=== PATIENT | male | born 1945 | race Caucasian/White ===

== ENCOUNTER 2025-03-10 15:11 | Emergency (ER) | payer MEDICARE, SELFPAY ==
[2025-03-10 15:25] VITALS: BP 144/79; PULSE 50; RESP 17; TEMP 36.7; O2SAT 100
--- NOTE | 2025-03-10 15:25 | ECG_ITS ---
Test Date: 2025-03-10 15:33:52 Measurements Intervals [place] Rate: 64 P: 46 [place]: 215 QRS: -21 QRSD: 88 T: 33 QT: 415 QTc: 429 Interpretive Statements SINUS RHYTHM WITH SINUS ARRHYTHMIA WITH FIRST DEGREE AV BLOCK CANNOT R/O SEPTAL INFARCT, AGE INDETERMINATE BORDERLINE ST-T WAVE ABNORMALITY- HIGH LATERAL LEADS BASELINE ARTIFACT- I, II, III, AVR, AVL, AVF, V1, V3 ABNORMAL ECG No previous ECG available for comparison Electronically Signed On 03-10-2025 15:38:56 CDT by Atif Christensen D.O.
--- NOTE | 2025-03-10 15:25 | ED.CHESTPAIN ---
HPI - Chest Pain General Chief Complaint: Chest Pain Stated Complaint: Chest Pain Source: patient Mode of arrival: ambulatory Limitations: no limitations History of Present Illness HPI narrative: Patient is a 79 year old male who is presenting to the clinic for chest pain that started this morning. He states the pain has been coming and going, but it is sharp. Currently denies any active chest pain at this moment. He has not taken anything over the counter. He is from [facility] and is here visiting family. He states that he normally has a low heart rate between 40-50. His PCP is working on getting diagnostic tests done for his low heart rate. Denies having any cardiac history. No pacemaker. Denies any shortness of breath, nausea, or vomiting. Related Data Home Medications ?Medication ?Instructions ?Recorded ?Confirmed ?Last Taken ?Type atorvastatin 10 mg tablet mg 03/10/25 Unknown History brimonidine 0.2 %-timolol 0.5 % drp 03/10/25 Unknown History eye drops (Combigan) Allergies Allergy/AdvReac Type Severity Reaction Status Date / Time No Known Allergies Allergy Verified 03/10/25 15:36 Review of Systems Review of Systems: CONSTITUTIONAL: Denies body aches, fever, chills, or sweats. EYES: Denies visual changes, redness, or discharge. ENT: Denies rhinorrhea, congestion, sore throat, or otalgia. CARDIOVASCULAR: Reports chest pain. No palpitations or edema. RESPIRATORY: Denies cough, sob, wheezing. GASTROINTESTINAL: Denies abdominal pain, nausea, vomiting, or diarrhea. SKIN: Denies rash, itching, or wounds. MUSCULOSKELETAL: Denies back pain, joint pain, or myalgia. NEUROLOGIC: Denies headache, numbness, tingling, or weakness. PSYCH: ?Denies depression or anxiety. All systems reviewed & are unremarkable except as noted in HPI and below [facility] Comments At time of signature, I have reviewed and agree with nursing past medical, surgical, social and family history unless otherwise noted. Please see nursing chart for further information. There is no relevant family history pertinent to the presenting complaint. Exam Narrative: GENERAL: Mildly ill-appearing, ?in no acute distress. EYES: EOMI. ?No redness or drainage. Conjunctivae normal. NECK: Normal AROM. ?Supple. ? CHEST: ?No respiratory distress. Clear to auscultation. HEART: Irregular rate and rhythm. No murmur appreciated. ABDOMEN: Soft, nontender, nondistended, normal active bowel sounds. EXTREMITIES: Normal range of motion. No edema. SKIN: Warm, dry, no rash. Capillary refill normal. ?Normal skin turgor. NEURO: Alert and oriented x3. Gait steady. PSYCH: ?Normal affect. ? Course Course Level of Care: Express Care Visit Transfer Transfered to: [facility] comments: Pt is agreeable to transfer. Requests transfer to [facility] via ambulance. Risks of transportation reviewed with pt including injury, worsening of condition and . Ambulance will be transporting patient. Report called to [facility], spoke with Dr. Maradiaga, accepting physician. Pt is in stable condition at time of transfer. Advised to remain NPO. MDM - Chest Pain MDM Narrative Medical decision making narrative: Discussed physical exam findings. EKG shows first degree block and myocardial infarction. Discussed in depth the need for patient to transfer to ER. Pt agreeable to plan. Patient chose [facility]. Differential Diagnosis Differential diagnosis: Likely stable angina, unstable angina pectoris, chest pain and other (myocardial infarction, 1st degree block, ) ECG Data EKG #1: ECG completion date: 03/10/25 ECG completion time: 15:33 Prior ECG tracings: not available for review Interpretation: Vent rate 64 BPM NH int 215 ms QRS dur 88ms QT/QTc 415/424 ms P-R-T axes 46-21 33 Avg RR 935 ms QTcB 429 ms QTcF 424 ms EKG Interpretation: other (first degree block, septal myocardial infarction) Critical Care Time Critical Care Time Critical Care Time: No Discharge Plan Discharge Clinical Impression: Chest pain Qualifiers: Chest pain type: unspecified Qualified Code(s): R07.9 - Chest pain, unspecified Patient Disposition: Acute Care Hospital Condition: Stable Patient Language: Danish Follow-up/Referrals: 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
--- NOTE | 2025-03-10 15:38 | PC.NURSE ---
EMS called for pt transfer
--- NOTE | 2025-03-10 15:45 | PC.NURSE ---
EMS here for pt, report given.
== END 2025-03-10 15:50 | disposition short-term general hospital (02) ==
DX: R07.9 Chest pain, unspecified (principal)
CPT/HCPCS: 93005; 99215; G0463

== ENCOUNTER 2025-03-10 16:09 | Emergency (ER) | payer MEDICARE, SELFPAY ==
--- NOTE | ~2025-03-10 | XR_ITS ---
XR chest 2V Ordering provider: Andrea Wolff III, DO History: 79 years Male with . chest pain, bradycardic . Comparison: None. FINDINGS: MEDIASTINUM: The cardiac silhouette is not enlarged. LUNGS: No infiltrates, effusions or pneumothorax. Emphysematous changes. OTHER: No free air under the diaphragm. Degenerative changes of the spine. IMPRESSION: No acute cardiopulmonary pathology. Reviewed, dictated and finalized at location A.
--- NOTE | 2025-03-10 16:12 | ECG_ITS ---
Test Date: 2025-03-10 16:16:43 Measurements Intervals [place] Rate: 61 P: 61 [place]: 201 QRS: -19 QRSD: 86 T: 51 QT: 408 QTc: 413 Interpretive Statements SINUS RHYTHM WITH MARKED SINUS ARRHYTHMIA BORDERLINE AV CONDUCTION DELAY CANNOT R/O SEPTAL INFARCT, AGE INDETERMINATE BORDERLINE ST-T WAVE ABNORMALITY- HIGH LATERAL LEADS BASELINE ARTIFACT- I, II, III, AVR, AVL, AVF ABNORMAL ECG Compared to ECG 03/10/2025 15:33:52 First degree AV block no longer present Electronically Signed On 03-10-2025 16:29:25 CDT by Atif Christensen D.O.
--- OUTSIDE RECORDS SUMMARY | 2025-03-10 16:12 | XMS_ITS ---
Author Organization [facility] Division Address [address] [place] [address] [address] [place] [address] Care Team Providers Care Guzzler Builder Name Role Phone SHAD GOMEZ Primary Care Provider Ruby Martinez Unavailable [phone] Jory Caban Unavailable [phone] REASON FOR VISIT Pt reports HAs not working- leave town tomorrow Encounters Encounter Location Date Provider Diagnosis [address] [facility] Leonardo Arrington [address] [facility] [address] [place] [address] 01/19/2025 Jory Caban Plan Of Treatment No Information Progress Notes * Peter ARCHIBALD WDOB:1945 (79 yo M)Acc No.[id number]:01/19/2025 Patient: Peter CONNOR Provider: Jhon Cm, [facility]-A :1945 A ge:79 Y S ex:Male Date:01/19/2025 Address:[address] Pcp:SHAD GOMEZ Structured Data:How did you hear about us? : Other Subjective: * Chief Complaints: * 1 . Pt reports HAs not working- leave town tomorrow. * Medical History: Objective: * Vitals: * Physical Examination: Assessment: Plan: * Treatment: * Billing Information: * Visit Code: * Procedure Codes: * Electronic signature of Jhon Lim on 03/10/2025 at 05:12 PM EDT Sign off status: Pending * Provider: Jhon Cm, CCC-A Date: 0 01/19/2025 Generated for Delia almonte/Lakshmi/Jina on: 0 03/10/2025 05:12 PM EDT
[2025-03-10 16:13] VITALS: BP 148/77; PULSE 61; RESP 16; TEMP 36.5; O2SAT 100
--- OUTSIDE RECORDS SUMMARY | 2025-03-10 16:13 | XMS_ITS | Data Portability ---
Author Organization MD [facility], [employer] Address [address] [place] [address] Care Team Providers Care Summer [employer] Coordinator Name Role Phone HUMA FERMIN OTHER Assessment No assessment recorded. Plan of Treatment Reminders Order Date Submit Date Provider Last Modified By Organization Details Last Modified Time Details Appointments None recorded. 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 Surgeries None recorded. Imaging electrocar diogram 2014 015 blane In-Office Order, Internal Use Only DO Not Attach Compendium DO Not Attach Compendium, Do Not Delete/merge, [id number] 5 09:10:17 MRI, brain - headache, weight loss, visual disturbanc e 2014 015 [facility], [address], [place], , 5 12:06:43 Medication Orders Augmentin 875 mg-125 mg tablet 2015 016 [id number], [address], [place], [id number], 6 04:33:32 Cialis 20 mg tablet 2014 015 [id number], [address], [place], [id number], 5 08:52:06 Patient TargetsNo targets recorded. Patient Instructions Encounter Date Encounter Id Patient Instructions Last Modified By Organization Details Last Modified Time 04/03/2015 [id number] Encouraged healt h promotion activities including healthy low cholesterol diet high in fruits and vegetables with low fat meats and whole grains, daily physical activity to reduce the risk of cardiovascular disease, dental hygiene, and sunscreen use. Adolescent and young adult females should consume1,200-1,500 mg of calcium per day, adults age 25-50 should consume 1,000 mg daily, and postmenopausal women need 1,000-1,500 mg per day. Encouraged avoidance of tobacco, limiting alcohol use and avoiding drinking and driving. Reviewed age-appropriate safety measures including seatbelt and helmet use. Preventive health measures addressed, including annual recommended screening for blood pressure and cholesterol, routine colon cancer screening for patients 50 years and older, breast cancer screening for women 40 years of age and older and cervical cancer screening for women 21 years of age and older and glaucoma screening. F/U in one year for annual physical, or sooner if pt has other complaints or chronic health problems. Not available 04/03/2015 08:39:46 06/07/2016 [id number] probiotic/yogurt with meds. ibuprofen as needed for pain. Call with no improvement or worsening next week. 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, normal MRI Referring Physician: Kacey Castillo [facility], Encounter Date: 05/04/2015 [employer] Referral for Br adycardia asymptomatic bradycardia with inverted T waves on EKG Referring Physician: Kacey Castillo [facility], Encounter Date: 05/04/2015 Results Created Date Observation Date Name Description Value Unit Range Abnormal Flag Note LastModifiedBy Organization Detail LastModifiedTime 05/04/20 15 05/04/2015 elect alivia postgr am EKG Result abnorm al abnormal Not Available In-Office Order Internal Use Only DO Not Attach Compendium DO Not Attach Compendium, Do Not Delete/merge, [id number] 05/04/2015 09:10:08 04/03/20 15 04/04/2015 CBC WBC 5.7 x10e3 /uL 3.4-10 .8 Not Available [facility] ([facility]) [address], [place], [address], 04/04/2015 09:46:13 04/03/20 15 04/04/2015 CBC RBC 4.50 x10e6 /uL 4.14-5 .80 Not Available [facility] ([facility]) [address], [place], [address], 04/04/2015 09:46:13 04/03/20 15 04/04/2015 CBC hemoglobin 13.9 g/dL 12.6-1 7.7 Not Available [facility] ([facility]) [address] [place], [address], 04/04/2015 09:46:13 04/03/20 15 04/04/2015 CBC hematocrit 41.0 % 37.5-5 1.0 Not Available [facility] ([facility]) [address] [place], [address], 04/04/2015 09:46:13 04/03/20 15 04/04/2015 CBC MCV 91 fL 79-97 Not Available [facility] ([facility]) [address] [place], [address], 04/04/2015 09:46:13 04/03/20 15 04/04/2015 CBC MCH 30.9 pg 26.6-3 3.0 Not Available [facility] ([facility]) [address] [place], [address], 04/04/2015 09:46:13 04/03/20 15 04/04/2015 CBC MCHC 33.9 g/dL 31.5-3 5.7 Not Available [facility] ([facility]) [address], [address], 04/04/2015 09:46:13 04/03/20 15 04/04/2015 CBC RDW 13.2 % 12.3-1 5.4 Not Available [facility] ([facility]) [address] [place], [address], 04/04/2015 09:46:13 04/03/20 15 04/04/2015 CBC platelets 237 x10e3 /uL 150-37 9 Not Available [facility] ([facility]) [address], [address], 04/04/2015 09:46:13 04/03/20 15 04/04/2015 CBC neutrophils 60 % Not Avai lable [facility] ([facility]) [address], [address], 04/04/2015 09:46:13 04/03/20 15 04/04/2015 CBC lymphs 24 % Not Available [facility] ([facility]) [address], [address], 04/04/2015 09:46:13 04/03/20 15 04/04/2015 CBC monocytes 8 % Not Availa ble [facility] ([facility]) [address], [address], 04/04/2015 09:46:13 04/03/20 15 04/04/2015 CBC eos 7 % Not Available [facility] ([facility]) [address], [address], 04/04/2015 09:46:13 04/03/20 15 04/04/2015 CBC basos 1 % Not Available [facility] ([facility]) [address], [address], 04/04/2015 09:46:13 04/03/20 15 04/04/2015 CBC neutrophils (absolute) 3.4 x10e3 /uL 1.4-7. 0 Not Available [facility] ([facility]) [address] [place], [address], 04/04/2015 09:46:13 04/03/20 15 04/04/2015 CBC lymphs (absolute) 1.4 x10e3 /uL 0.7-3. 1 Not Available [facility] ([facility]) [address] [place], [address], 04/04/2015 09:46:13 04/03/20 15 04/04/2015 CBC monocytes(ab solute) 0.5 x10e3 /uL 0.1-0. 9 Not Available [facility] ([facility]) [address] [place], [address], 04/04/2015 09:46:13 04/03/2004/04/2015 CBC eos (absolute) 0.4 x10e3 /uL 0.0-0. 4 Not Available [facility] ([facility]) [address], [address], 04/04/2015 09:46:13 04/03/2004/04/2015 CBC baso (absolute) 0.1 x10e3 /uL 0.0-0. 2 Not Available [facility] ([facility]) [address], [place], [address], 04/04/2015 09:46:13 04/03/2004/04/2015 CBC immature granulocytes 0 % Not Available [facility]) [address], [address], 04/04/2015 09:46:13 04/03/2004/04/2015 CBC immature grans (abs) 0.0 x10e3 /uL 0.0-0. 1 Not Available [facility] ([facility]) [address], [place], [address], 04/04/2015 09:46:13 04/03/2004/04/2015 CMP, serum or plasm a glucose, serum 79 mg/dL 65-99 Not Available [facility]) [address] [place], [address], 04/04/2015 09:46:13 04/03/2004/04/2015 CMP, serum or plasm a BUN 16 mg/dL 8-27 Not Available [facility] ([facility]) [address] [place], [address], 04/04/2015 09:46:13 04/03/2004/04/2015 CMP, serum or plasm a creatinine, serum 0.93 mg/dL 0.76-1 .27 Not Available [facility] ([facility]) [address] [place], [address], 04/04/2015 09:46:13 04/03/20 15 04/04/2015 CMP, serum or plasm a eGFR if nonafricn AM 84 mL/mi n/1.7 3 >59 Not Available [facility] ([facility]) [address], [place], [address], 04/04/2015 09:46:13 04/03/20 15 04/04/2015 CMP, serum or plasm a eGFR if africn AM 97 mL/mi n/1.7 3 >59 Not Available [facility] ([facility]) [address], [place], [address], 04/04/2015 09:46:13 04/03/20 15 04/04/2015 CMP, serum or plasm a BUN/creatini ne ratio 17 10-22 Not Available [facility] ([facility]) [address] [place], [address], 04/04/2015 09:46:13 04/03/20 15 04/04/2015 CMP, serum or plasm a sodium, serum 140 mmol/ L 134-14 4 Not Available [facility] ([facility]) [address] [place], [address], 04/04/2015 09:46:13 04/03/20 15 04/04/2015 CMP, serum or plasm a potassium, serum 4.9 mmol/ L 3.5-5. 2 Not Available [facility] ([facility]) [address] [place], [address], 04/04/2015 09:46:13 04/03/20 15 04/04/2015 CMP, serum or plasm a chloride, serum 102 mmol/ L 97-108 Not Available [facility] ([facility]) [address] [place], [address], 04/04/2015 09:46:13 04/03/20 15 04/04/2015 CMP, serum or plasm a carbon dioxide, total 20 mmol/ L 18-29 Not Available [facility] ([facility] [address] [place], [address], 04/04/2015 09:46:13 04/03/2004/04/2015 CMP, serum or plasm a calcium, serum 9.3 mg/dL 8.6-10 .2 Not Available [facility] ([facility]) [address] [place], [address], 04/04/2015 09:46:13 04/03/2004/04/2015 CMP, serum or plasm a protein, total, serum 6.4 g/dL 6.0-8. 5 Not Available [facility] ([facility]) [address] [place], [address], 04/04/2015 09:46:13 04/03/2004/04/2015 CMP, serum or plasm a albumin, serum 4.6 g/dL 3.6-4. 8 Not Available [facility] ([facility]) [address] [place], [address], 04/04/2015 09:46:13 04/03/2004/04/2015 CMP, serum or plasm a globulin, total 1.8 g/dL 1.5-4. 5 Not Available [facility] ([facility]) [address], [address], 04/04/2015 09:46:13 04/03/2004/04/2015 CMP, serum or plasm a A/G ratio 2.6 1.1-2. 5 high Not Available [facility] ([facility]) [address] [place], [address], 04/04/2015 09:46:13 04/03/2004/04/2015 CMP, serum or plasm a bilirubin, total 0.7 mg/dL 0.0-1. 2 Not Available [facility] ([facility]) [address], [address], 04/04/2015 09:46:13 04/03/20 15 04/04/2015 CMP, serum or plasm a alkaline phosphatase, S 71 IU/L 39-117 Not Available [facility] ([facility]) [address], [place], [address], 04/04/2015 09:46:13 04/03/20 15 04/04/2015 CMP, serum or plasm a AST (SGOT) 15 IU/L 0-40 Not Available [facility] ([facility]) [address], [place], [address], 04/04/2015 09:46:13 04/03/2004/04/2015 CMP, serum or plasm a ALT (SGPT) 19 IU/L 0-44 Not Available [facility] ([facility]) [address], [place], [address], 04/04/2015 09:46:13 04/03/2004/04/2015 lipid panel , serum cholesterol, total 179 mg/dL 100-19 9 Not Available [facility] ([facility]) [address], [address], 04/04/2015 09:46:14 04/03/2004/04/2015 lipid panel , serum triglyceride s 67 mg/dL 0-149 Not Available [facility] ([facility]) [address], [place], [address], 04/04/2015 09:46:14 04/03/2004/04/2015 lipid panel , serum HDL cholesterol 56 mg/dL >39 ACCOR DING TO ATP-I II GUIDE LINES , HDL-C >59 MG/DL IS CONSI DERED A NEGAT BRIAN RISK FACTO R FOR CHD. Not Available [facility] ([facility]) [address], [place], [address], 04/04/2015 09:46:14 04/03/2004/04/2015 lipid panel , serum VLDL cholesterol aimee 13 mg/dL 5-40 Not Available [facility] ([facility]) [address], [place], [address], 04/04/2015 09:46:14 04/03/20 15 04/04/2015 lipid panel , serum LDL cholesterol calc 110 mg/dL 0-99 high Not Available [facility] ([facility]) [address] [place], [address], 04/04/2015 09:46:14 04/03/20 15 04/04/2015 iron + total iron- cory ng capac ity (TIBC ), serum iron bind.cap.(TI BC) 278 ug/dL 250-45 0 Not Available [facility] ([facility]) [address], [place], [address], 04/04/2015 09:46:14 04/03/20 15 04/04/2015 iron + total iron- cory ng capac ity (TIBC ), serum UIBC 169 ug/dL 150-37 5 Not Available [facility] ([facility]) [address], [place], [address], 04/04/2015 09:46:14 04/03/2004/04/2015 iron + total iron- cory ng capac ity (TIBC ), serum iron, serum 109 ug/dL 40-155 Not Available [facility] ([facility]) [address], [place], [address], 04/04/2015 09:46:14 04/03/2004/04/2015 iron + total iron- cory ng capac ity (TIBC ), serum iron saturation 39 % 15-55 Not Available [facility] ([facility]) [address] [place], [address], 04/04/2015 09:46:14 04/03/2004/04/2015 vitam in B12 + folat e, serum or blood vitamin B12 258 pg/mL 211-94 6 Not Available [facility] ([facility]) [address], [place], [address], 04/04/2015 09:46:15 04/03/2004/04/2015 vitam in B12 + folat e, serum or blood folate (folic acid), serum 14.4 NG/mL >3.0 A SERUM FOLAT E ARGENIS NTRAT ION OF LESS THAN 3.1 NG/ML IS CONSI DERED TO REPRE SENT CLINI AIMEE DEFIC IENCY . Not Available [facility] ([facility]) [address], [place], [address], 04/04/2015 09:46:15 04/03/2004/04/2015 PSA, serum or plasm a prostate specific Ag, serum <0.1 NG/mL 0.0-4. 0 MERRY ECLIA METHO DOLOG Y. . ACCOR DING TO THE [facility]I CAN UROLO G[facility] IAT[facility] N, SERUM PSA SHOUL D DECRE ASE AND REMAI N AT UNDET ECTAB LE LEVEL S AFTER RADIC AL PROST ATECT FLETCHER. THE AUA DEFIN ES BIOCH EMICA L RECUR RENCE AN INITI AL PSA VALUE 0.2 NG/ML OR GREAT ER FOLLO WED BY A SUBSE QUENT CONFI RMATO RY PSA VALUE 0.2 NG/ML OR GREAT ER. VALUE S OBTAI JEFF WITH DIFFE RENT ASSAY METHO DS OR KITS CANNO T BE USED INTER GORDON EABLY . RESUL TS CANNO T BE INTER PRETE D ABSOL ROSA M EVIDE NCE OF THE PRESE NCE OR ABSEN CE OF ZACK DIXON SE. Not Available [facility] ([facility]) [address], [place], [address], 04/04/2015 09:46:15 04/03/2004/04/2015 TSH, serum or plasm a TSH 0.846 uIU/m L 0.450- 4.500 Not Available [facility] ([facility]) [address], [place], [address], 04/04/2015 09:46:16 04/03/2004/04/2015 vitam in D3, 25-hy droxy , serum vitamin D, 25-hydroxy 30.1 NG/mL 30.0-1 00.0 VITAM IN D DEFIC IENCY HAS BEEN DEFIN ED BY THE INSTI TUTE OF MEDIC INE AND AN ENDOC RINE SOCIE TY PRACT ICE GUIDE LINE A LEVEL OF SERUM 25-OH VITAM IN D LESS THAN 20 NG/ML (1,2) . THE ENDOC RINE SOCIE TY WENT ON TO FURTH ER DEFIN E VITAM IN D INSUF FICIE NCY A LEVEL BETWE EN 21 AND 29 NG/ML (2). 1. IOM (INST ITUTE OF MEDIC INE). 2010. DIETA RY REFER ENCE RODERICK ES FOR CALCI UM AND D. LUCILLE DIXON [place]: THE [facility] PRESS . 2. LADAN Morejon MF, ADAM CHAUDHRY NC, RENETTA OFF-F ERRAR I REYES, ET AL. EVALU ATION , TREAT MENT, AND PREVE NTION OF VITAM IN D DEFIC IENCY : AN ENDOC RINE SOCIE TY CLINI AIMEE PRACT ICE GUIDE LINE. JCEM. 2010; 96(7) :1911 -30. Not Available [facility] ([facility]) [address], [place], [address], 04/04/2015 09:46:16 04/24/20 15 04/24/2015 MRI, brain No observ ation record ed. [address], [place], [address], 05/01/2015 23:04:17 04/24/20 15 04/24/2015 MRI, brain No observ ation record ed. [address], [place] [place], [place], , 05/01/2015 23:05:38 07/20/20 15 elect alivia conrad am No observ ation record ed. [email or web address] In-Office Order Internal Use Only DO Not Attach Compendium DO Not Attach Compendium, Do Not Delete/merge, [id number] 07/20/2015 11:20:51 Result Notes None recorded. Problems Name Problem SNOMED Code Status Onset Date Resolution Date Notes Provider Name and Address Organization Details Recorded Time Impotence Active MD Emily [facility]ier [employer] 6 10:02:39 Headache 47560481 Active chronic with normal MRI 05/06 MD Emily Frazier [employer] [facility] 5 09:10:16 Bradycardia 13314419 Active MD Emily Frazier [employer] [facility] 5 09:10:16 Problem Notes None recorded. Procedures Surgical History Date Name Laterality Status Provider Name and Address Organization Details Recorded Time 2 Eye Surgery completed Kacey Jensen [employer] [facility] 05/04/2015 08:59:11 9 Prostate Surgery completed Leigh Jensen NP [address], [facility] , [address], MD Emily [facility] [employer] [facility] 04/03/2015 08:39:47 Imaging Results None recorded. Procedure Notes None recorded. Medical Equipment None Reported. Allergies No known drug allergies Medications Name Sig Start Date Stop Date Status Note LastModified by Organization Details LastModified Time cyclobenzaprine 10 mg tablet active Not Available Not Available Not Available Augmentin 875 mg-125 mg tablet Take 1 tablet every 12 hours by oral route for 10 days. 2015 active Not Available Not Available Not Avai lable clindamycin HCl 300 mg capsule active Not Available Not Availab le Not Available penicillin V potassium 500 mg tablet active Not Available Not Available Not Available oxycodone-acetam inophen 5 mg-325 mg tablet active Not Available Not Available No t Available prednisolone acetate 1 % eye drops,suspension active Not Available Not Avail able Not Available econazole nitrate 1 % topical cream active Not Available Not Availabl e Not Available indomethacin 50 mg capsule active Not Available Not Available N ot Available Vigamox 0.5 % eye drops active Not Available Not Available No t Available Cialis 5 mg tablet TAKE 1 TABLET (s) EVERY DAY BY ORAL ROUTE NEEDED. active Not Available Not Available No t Available Cialis 20 mg tablet Take 1 tablet every day by oral route as needed for 30 days. active Not Available Not Available No t Available Durezol 0.05 % eye drops active Not Available Not Available No t Available B12 active Not Available Not Availa ble Not Available Vitals Date Recorded Respiratory rate Body weight Body temperature Heart rate Body mass index (BMI) Body height Systolic blood pressure Diastolic blood pressure Provider Name and Address Organization Details Last Updated DateTime 5 18 /min 71254.8 1735 g 98.3 [degF] 62 /min 21 kg/m2 182.88 cm 100 mm[Hg] 70 mm[Hg] Leigh Jensen NP [address] [facility] [address], [place], [phone] , MD Emily Jensen [employer] [facility] [facility] 5 08:39:46 Date Recorded Body height Heart rate Respiratory rate Oxygen saturation Oxygen saturation in Arterial blood by Pulse oximetry Systolic blood pressure Diastolic blood pressure Provider Name and Address Organization Details Last Updated DateTime 6 182.88 cm 72 /min 30 /min 99 % 99 % 117 mm[Hg] 70 mm[Hg] Kacey Jensen [facility] [facility] 6 12:35:45 Date Recorded Respiratory rate Body weight Body height Heart rate Body mass index (BMI) Systolic blood pressure Diastolic blood pressure Provider Name and Address Organization Details Last Updated DateTime 5 20 /min 01430.1 03099 g 182.88 cm 55 /min 21.4 kg/m2 100 mm[Hg] 72 mm[Hg] Kacey Jensen [employer] [facility] 5 08:59:10 Date Recorded Body height Heart rate Oxygen saturation Oxygen saturation in Arterial blood by Pulse oximetry Respiratory rate Body temperature Provider Name and Address Organization Details Last Updated DateTime 6 182.88 cm 76 /min 99 % 99 % 20 /min 98.2 [degF] Kacey Jensen [employer] [facility] 6 15:57:01 Social History Question Answer Notes LastModified by Organizat ion Details LastModified Time Tobacco Smoking Status Never Smoker Not Available [facility] 07/25/2020 03:33:47 What Is Your Level Of Caffeine Consumption? Moderate [id number] Information not available 07/25/2020 What Type Of Diet Are You Following? REGULAR No Red Meat [id number] Information not available 07/25/2020 Which Illicit Or Recreational Drugs Have You Used? Marijuana Weekends [id number] Information not available 07/25/2020 Family History Of Heart Disease? Yes Information not available 04/03/2015 High Blood Pressure No Information not available 04/03/2015 High Cholesterol No Informat ion not available 04/03/2015 How Many Children Do You Have? 2 [id number] Information not available 07/25/2020 What Is Your Parents' Marital Status? [id number] Information not available 07/25/2020 Are You Sexually Active? Yes [id number] Information not available 07/25/2020 Sex: Unknown Functional Status Question Answer Note LastModified by Organizat ion Details LastModified Time What is your level of alcohol consumption? Moderate [id number] Information not available 07/25/2020 Are you currently employed? 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 Occasional [id number] Information not available 07/25/2020 Mental Status None recorded. Family History Relationship Description Onset Age of this Age Resolved Age Notes LastModified by Organization Details LastModified Time Mother Hypertensive disorder Not available 2014 08:39:47 Mother Cerebrovascu lar accident 76 86 Not available 08:39:47 Medical History Condition Response Anxiety Disorder N Muscle, Joint, or Bone Problems N Heart Problems N Vision or Eye Problems Y Bruise or bleed easily N Hyperlipidemia N Cancer Y Allergies Y COPD N Asthma N Lung Disease N Skin Problems N HIV/AIDS N Speech Problems N Bladder or Kidney Problems Y Reflux/GERD N Heart Disease N Headaches Y Hypertension N Kidney Disease N Immunizations Vaccine Type Date Status Note Provider Nam e and Address Organization Details Recorded Time Pneumococcal conjugate PCV 13 6 completed Not Available [facility] 10/09/2019 03:00:34 Past Encounters Encounter ID Performer Location Encounter Start Date Encounter Closed Date Diagnosis/Indication Diagnosis SNOMED-CT Code Diagnosis ICD10 Code Diagnosis Note [id number] Leigh Jensen, [employer] Leigh Jensen [employer] [address] [place] [id number] 04/03/2015 07:58:08 04/03/2015 09:09:54 Adult health examination 881481599 Impotence 349684984 Headache 88648504 [id number] Kacey Jensen [employer] [address] [place] [id number] 05/04/2015 08:29:32 05/04/2015 09:11:10 Pre-surgery evaluation [id number] cleared for surgery Headache 85279427 Bradycardia 70288866 [id number] Kacey Jensen [employer] [address] [place] [id number] 04/18/2016 10:34:00 04/18/2016 12:40:47 Administrative reason for encounter [id number] Z02.9 Active or passive immunization 014785079 Z23 [id number] Kacey Jensen [employer] [address] [place] [id number] 06/07/2016 15:37:06 06/07/2016 15:57:36 Acute bacterial sinusitis 16281688 J01.90 Health Concerns Section Related Observation LastModified by Organization Detai ls LastModified Time None Recorded Concern Status LastModified by Organization Details LastModified Time None Recorded Advance Directives Directive None Recorded Payers Insurance Date Sequence Insurance Name Policy Number Policy Lares Covered Member ID Lares Member ID Guarantor Name 06/07/2016 1 [employer]: [employer] ([employer]) [id number] Ludmila Butts [id number] Peter Gonsales Notes Date Note Type Note Provider Name and Address Organization Details Recorded Time 06/07/2016 text/html Sinusitis/Allerg y Reported bypatient.Locatio n:maxillary; frontal Associated Symptoms:no fever; no weight loss; no hemoptysis; no hematemesis; no difficulty breathing; no nausea or vomiting; no sore throat; no thick phlegm in throat; not constantly clearing the throat; no ear fullness; no nasal itching; no eye itching; no pain behind the eyes; no skin itching;nasal discharge from both nostrils;headache ;facial pain;sinus pain;nasal discharge;nasal passage blockage bilaterally Onset/Timing:grad ual onset; initially started 5days ago Severity:limits daily activities;freque nt breathing through the mouth Context:worse with seasonal allergen exposure Alleviating factors:nothing gives relief Sinus pain x 4-5 days triggers migraines, feeling very clogged. Using nasacort with no relief Kacey montesinos MD - Leigh Jensen [employer] 06/07/2016 15:57:06
--- OUTSIDE RECORDS SUMMARY | 2025-03-10 16:13 | XMS_ITS ---
Author Organization [facility] Address [address] [place] [address] [address] [place] [id number] Care Team Providers Care In Home Aide Name Role Phone SHAD GOMEZ Primary Care Provider UnavailRuby Austin Unavailable [phone] Bharath Newton Unavailable [phone] REASON FOR VISIT 1 week f/u Medications Medication SIG (Take, Route, Frequency, Duration) Notes Start Date End Date Status Ciprofloxacin-dexAMETHasone 0.3-0.1 % 4 drops into affected ear Otic Twice a day for 7 days 12/09/2024 Active Rizatriptan Benzoate 10 MG Oral for 18 Days Active Atorvastatin Calcium 10 MG TAKE 1 TABLET (10 MG) BY MOUTH DAILY AT BEDTIME Oral for 90 Days Active Myrbetriq 50 MG TAKE 1 TABLET BY LYNETTE TH EVERY DAY Oral for 30 Days Active Encounters Encounter Location Date Provider Diagnosis 9 [facility] ENT Leonardo Arrington [address] [facility] [address] [place] [id number] 12/15/2024 Bharath Newton Plan Of Treatment No Information Progress Notes * ARCHIBALD, Peter WDOB:1945 (79 yo M)Acc No.[id number]:12/15/2024 Progress Notes Patient: Peter CONNOR Appointment Provider: Radha Newton PA-C :1945 A ge:79 Y S ex:Male Date:12/15/2024 Address:[address] [facility] [id number] Pcp:SHAD GOMEZ Structured Data:How did you hear about us? : Other Subjective: * Chief Complaints: * 1 . 1 week f/u. * Medical History: * Medications: T aking Ciprofloxacin-dexAMETHasone 0.3-0.1 % Suspension 4 drops into affected ear Otic Twice a day , Taking Rizatriptan Benzoate 10 MG Tablet Oral , Taking Atorvastatin Calcium 10 MG Tablet TAKE 1 TABLET (10 MG) BY MOUTH DAILY AT BEDTIME Oral , Taking Myrbetriq 50 MG Tablet Extended Release 24 Hour TAKE 1 TABLET BY MOUTH EVERY DAY Oral Objective: * Vitals: Assessment: Plan: * Treatment: * Billing Information: * Visit Code: * Procedure Codes: * Electronic signature of Bharath Newton PA-C on 03/10/2025 at 05:12 PM EDT Sign off status: Pending * Appointment Provider: Radha Newton PA-C Date: 0 12/15/2024 Generated for Delia almonte/Laksmhi/Jina on: 0 03/10/2025 05:12 PM EDT
--- OUTSIDE RECORDS SUMMARY | 2025-03-10 16:13 | XMS_ITS | Data Portability ---
Author Organization MD - [facility] [address] Address [address] [place] [address] Care Team Providers Care Designer/Writer Name Role Phone SHAD GOMEZ Referring Provider [phone] Assessment Encounter Date Assessment Date Assessment LastModified by Organization Details LastModified Time 11/28/2022 11/28/2022 Mr. Gonsales has concerns regarding cognitive functioning which may be associated with normal aging or mild cognitive impairment. His current level of insight, orientation, and functioning, are generally inconsistent with a diagnosis of dementia though this cannot be completely excluded at this time and he may be at risk for further decline. Plan : 1. Brain MRI without contrast in search of vascular/structura l changes which could be associated with cognitive dysfunction. 2. Routine EEG in search of epileptiform/encep halopathic features. 3. Comprehensive neurocognitive evaluation to more precisely define the nature and scope of the above cognitive symptoms. 4. Blood work in search of reversible causes of memory loss including vitamin B12, folate, homocysteine, and TSH. I will obtain and review any recent results to avoid duplication. 5. Follow up after completion of the above investigations to review the results. lei Not available 11/28/2022 11:48:18 03/10/2023 03/10/2023 Mr. Gonsales has concerns regarding cognitive functioning which may be associated with normal aging and marijuana use. Plan : 1. He was counseled regarding reducing his use of alcohol and marijuana given their influence on memory. 2. Blood work to check B12, thiamine, and Lyme antibodies. 3. Mr. Gonsales will contact me to review his lab results. 4. Pursue non-pharmacologic interventions to help protect cognition including participating in a regular exercise program, eating a diet high in antioxidants and participating in activities that stimulate cognition. [email or web address] Not available 03/10/2023 12:47:12 04/27/2024 04/27/2024 78m w hx Lyme disease, retinal detachments, migraine who presents for 3 separate events of feeling off balance. would like to r/o vertebrobasilar insufficiency/post erior circulation TIA as cause of temporary ataxia/imbalance. will obtain new MRI to r/o stroke and obtain vascular imaging. Given the patient s history and clinical presentation, there is concern for possible vascular stenoses causing cerebral ischemia. A transcranial and carotid doppler ultrasound will therefore be done for further evaluation of both intracranial and extracranial vasculature to determine if any interventions or medication changes need to be made for the patient s vascular risk management. also found on exam was mild peripheral neuropathy sxs, which may be contributing to difficulty w balance kee on uneven terrain such as hikes. will obtain EMG/NCS and bloodwork to investigate; will also consider possibility of incomplete respone to lyme tx. RTC 2 mo for f/u 53 minutes was spent on this date of this established patient encounter preparing for, providing and documenting the above E/M service and all associated orders/referrals/c ommunications. Due to the comprehensive longitudinal patient care provided by our neurology specialty clinic for continuous care to manage and detect any changes that may occur with the patient s neurological condition, I have added CPT code G2211. In addition to my office visit with the patient, the patient s neurological condition requires consistent coordination and monitoring with the patient s overall health care providers and/or facilities, such as primary care, emergency visits, hospitalizations, prescriptions, medication adherence, and diagnostic test results. The additional time and resources are necessary to manage the patient s complex neurological condition. [email or web address] Not available 04/28/2024 22:00:15 06/29/2024 06/29/2024 78m w PN who presents for f/u discussed diagnosis, prognosis, caution with balance and uneven terrain. no vascular or central cause found for leaning effect. will send for PT to work on balance. RTC 1 yr or sooner as needed 32 minutes was spent on this date of this established patient encounter preparing for, providing and documenting the above E/M service and all associated orders/referrals/c ommunications. Due to the comprehensive longitudinal patient care provided by our neurology specialty clinic for continuous care to manage and detect any changes that may occur with the patient s neurological condition, I have added CPT code G2211. In addition to my office visit with the patient, the patient s neurological condition requires consistent coordination and monitoring with the patient s overall health care providers and/or facilities, such as primary care, emergency visits, hospitalizations, prescriptions, medication adherence, and diagnostic test results. The additional time and resources are necessary to manage the patient s complex neurological condition. [email or web address] Not available 06/29/2024 23:30:58 Plan of Treatment Reminders Order Date Submit Date Provider Last Modified By Organization Details Last Modified Time Details Appointments FOLLOW UP 2024 02:45P Kerwin RODRIGUEZ MD Not available Not available Not available Lab HbA1c (hemoglob in A1c), blood 2023 024 DWAINE Har[facility], [address] [place], [address], 05/18/2024 09:20:17 vitamin B12 + folate, serum or blood 2023 024 DWAINE Harrington, [address] [place], [address], 05/18/2024 09:20:15 spep, serum, reflex immunofix ation 2023 024 DWAINE Harrington, [address] [place], [address], 05/18/2024 09:20:16 TSH + free T4, serum 2023 024 DWAINE Harrington, [address] [place], [address], 05/18/2024 09:20:15 MARY (antinucl ear antibodie s) screen, ifa, serum 2023 024 DWAINE Harrington, [place], [address], 05/18/2024 09:20:18 vitamin B12 + folate, serum or blood 2022 023 DWAINE [facility], [address], [place], [address], 03/13/2023 11:09:43 vitamin B1 (thiamine ), blood 2022 023 [email or web address] [facility], [address], [place], [address], 03/10/2023 12:23:00 lyme igg + igm Ab, western blot, serum 2022 023 [facility], [address], [place], [address], 03/10/2023 12:23:09 Referral None recorded. Procedures None recorded. Surgeries None recorded. Imaging MRI, cervical spine, w/o contrast - worsening balance, leaning to L. New onset B hand painThis imaging referral is to be considere d valid ONLY if the interpret ation is by a board certified neuroradi ologist; do NOT perform the scan if that standard cannot be met. 2024 025 [email or web address] 1 [facility] [place], [facility] [address], [address], [place], [address], 12/28/2024 10:48:59 electromy ogram + nerve conductio n study - B Hand pain 2024 025 Not available 03/09/2025 15:33:19 US, doppler, transcran ial, intracran ial arteries, complete 2023 024 DWAINE Not available 05/05/2024 08:16:21 US, doppler, transcran ial, intracran ial arteries, emboli detection , w/o microbubb le 2023 024 Not available 05/07/2024 08:10:44 US, doppler, transcran ial, intracran ial arteries, vasoreact ivity study 08/06/ 2024 08/06/2 024 Not available 05/07/2024 08:10:54 US, duplex, carotid artery 2023 024 DWAINE Not available 05/04/2024 17:06:24 MRI, brain, w/o contrast - ?TIA with gait ataxia leaning to R side 2023 024 [facility] [place], [address], [address], [place], [address], 06/01/2024 08:17:42 electromy ogram + nerve conductio n study - BLE 2023 024 [email or web address] [facility] [place], [address], [address], [place], [address], 05/27/2024 08:29:47 electroen cephalogr am 2022 023 DWAINE Not available 12/09/2022 01:02:38 MRI, brain, w/o contrast - Memory symptoms, compare to prior imaging from 2019 023 [facility] [place], [address], [address], [place], [address], 12/17/2022 14:39:49 Medication Orders None recorded. Patient TargetsNo targets recorded. Patient Instructions Encounter Date Encounter Id Patient Instructions Last Modified By Organization Details Last Modified Time 11/28/2022 [id number] neuropsychologic al testing* DWAINE Not available 02/03/2023 06:54:38 Reason for Referral None Reported. Results Created Date Observation Date Name Description Value Unit Range Abnormal Flag Note LastModifiedBy Organization Detail LastModifiedTime 03/10/20 23 03/11/2023 VITAM IN B12 AND FOLAT E vitamin B12 428 pg/mL 232-12 45 Not Available [facility] ([facility]) [address] [facility], [place], [address], 03/13/2023 11:09:43 03/10/20 23 03/11/2023 VITAM IN B12 AND FOLAT E folate (folic acid), serum >20.0 NG/mL >3.0 A serum folat e madina ntrat ion of less than 3.1 ng/mL is consi dered to repre sent clini aimee defic iency . Not Available [facility] ([facility]) [address] [facility], [place], [address], 03/13/2023 11:09:43 03/10/20 23 03/12/2023 VITAM IN B1 (THIA MINE) , BLOOD vit. B1, whole blood 118.4 nmol/ L 66.5-2 00.0 Not Available [facility] ([facility]) [address] [facility], [place], [address], 03/13/2023 11:09:45 03/10/20 23 03/11/2023 LYME DISEA SE SEROL OGY W/REF WILLIAM lyme total antibody zia Equivo aimee negati ve Evide nce of Lyme antib odies ; confi rmati on indic ated. See Lyme IgG and Lyme IgM resul ts (refl ex testi ng), and Lyme inter preta tion for final inter preta tion of the Lyme serol ogy refle x algor ithm. Not Available [facility] ([facility]) [address] [facility], [place], [address], 03/13/2023 11:09:46 03/10/20 23 03/11/2023 LYME DISEA SE SEROL OGY W/REF WILLIAM lyme IgG zia Positi ve negati ve Not Available [facility] ([facility]) [address] [facility], [place], [address], 03/13/2023 11:09:46 03/10/20 23 03/11/2023 LYME DISEA SE SEROL OGY W/REF WILLIAM lyme IgM zia Positi ve negati ve Not Available [facility] ([facility]) [address] [facility], [place], [address], 03/13/2023 11:09:46 03/10/20 23 03/11/2023 LYME DISEA SE SEROL OGY W/REF WILLIAM lyme interpretati on COMMEN T abnormal Lyme IgM/I gG Abs Detec rowan Resul ts are consi stent with B. burgd orfer i infec tion (Lyme disea se) in the recen t or remot e past. IgG-c lass antib odies may remai n detec table for month s to years follo wing resol ution of infec tion. Resul ts shoul d not be used to monit or or estab charbel adequ ate respo nse to thera py. Respo nse to thera py is confi rmed throu gh resol ution of clini aimee sympt oms; addit ional labor atory testi ng shoul d not be perfo rmed. If both tests are equiv ocal consi maki repea t testi ng in 7 to 14 days if clini stefany warra nted. Not Available [facility] ([facility]) [address] [facility], [place], [address], 03/13/2023 11:09:46 05/07/20 24 05/08/2024 VITAM IN B12+F OLATE vitamin B12 373 pg/mL 232-12 45 normal Not Available [facility] ([facility]) [address] [place], [address], 05/18/2024 09:20:15 05/07/20 24 05/08/2024 VITAM IN B12+F OLATE folate (folic acid), serum 16.5 NG/mL >3.0 normal A serum folat e madina ntrat ion of less than 3.1 ng/mL is consi dered to repre sent clini aimee defic iency . Not Available [facility] ([facility]) [address] [facility], [place], [address], 05/18/2024 09:20:15 05/07/20 24 05/12/2024 VITAM IN B12+F OLATE homocyst(E)i ne 8.0 umol/ L 0.0-19 .2 Not Available [facility] ([facility]) [address] [place], [address], 05/18/2024 09:20:15 05/07/20 24 05/17/2024 VITAM IN B12+F OLATE methylmaloni c acid, serum 196 nmol/ L 0-378 Not Available [facility] ([facility]) [address] [place], [address], 05/18/2024 09:20:15 05/07/20 24 05/08/2024 TSH+F REE T4 TSH 0.702 uIU/m L 0.450- 4.500 normal Not Available [facility] ([facility]) [address] [facility], [place], [address], 05/18/2024 09:20:15 05/07/20 24 05/08/2024 TSH+F REE T4 T4,free(dire ct) 1.22 NG/dL 0.82-1 .77 normal Not Available [facility] ([facility]) [address] [facility], [place], [address], 05/18/2024 09:20:15 05/07/20 24 05/07/2024 MULTI PLE MYELO MA CASCA DE please note: COMMEN T [facility] will follo w via compu ter, mail, or couri stormy aaron. Not Available [facility] ([facility]) [address] [place], [address], 05/18/2024 09:20:16 05/07/20 24 05/08/2024 MULTI PLE MYELO MA CASCA DE protein, total 6.2 g/dL 6.0-8. 5 normal Not Available [facility] ([facility]) [address] [place], [address], 05/18/2024 09:20:16 05/07/20 24 05/11/2024 MULTI PLE MYELO MA CASCA DE albumin 4.0 g/dL 2.9-4. 4 Not Available [facility] ([facility]) [address] [place], [address], 05/18/2024 09:20:16 05/07/20 24 05/11/2024 MULTI PLE MYELO MA CASCA DE pfbmd-5-sfvj ulin 0.2 g/dL 0.0-0. 4 Not Available [facility] ([facility]) [address] [facility], [place], [address], 05/18/2024 09:20:16 05/07/20 24 05/11/2024 MULTI PLE MYELO MA CASCA DE qkskr-3-kvqa ulin 0.4 g/dL 0.4-1. 0 Not Available [facility] ([facility]) [address] [facility], [place], [address], 05/18/2024 09:20:16 05/07/20 24 05/11/2024 MULTI PLE MYELO MA CASCA DE beta globulin 0.6 g/dL 0.7-1. 3 below low normal Not Available [facility] ([facility]) [address] [facility], [place], [address], 05/18/2024 09:20:16 05/07/20 24 05/11/2024 MULTI PLE MYELO MA CASCA DE gamma globulin 1.0 g/dL 0.4-1. 8 Not Available [facility] ([facility]) [address] [facility], [place], [address], 05/18/2024 09:20:16 05/07/20 24 05/11/2024 MULTI PLE MYELO MA CASCA DE M-spike NOT OBSERV ED g/dL not observ ed Not Available [facility] ([facility]) [address] [place], [address], 05/18/2024 09:20:16 05/07/20 24 05/11/2024 MULTI PLE MYELO MA CASCA DE globulin, total 2.2 g/dL 2.2-3. 9 Not Available [facility] ([facility]) [address] [place], [address], 05/18/2024 09:20:16 05/07/20 24 05/11/2024 MULTI PLE MYELO MA CASCA DE A/G ratio 1.8 0.7-1. 7 above high normal Not Available [facility] ([facility]) [address] [facility], [place], [address], 05/18/2024 09:20:16 05/07/20 24 05/11/2024 MULTI PLE MYELO MA CASCA DE reflex testing . Not Available [facility] ([facility]) [address] [facility], [place], [address], 05/18/2024 09:20:16 05/07/20 24 05/11/2024 MULTI PLE MYELO MA CASCA DE free kappa lt chains,S 15.7 mg/L 3.3-19 .4 normal Not Available [facility] ([facility]) [address] [facility], [place], [address], 05/18/2024 09:20:16 05/07/20 24 05/11/2024 MULTI PLE MYELO MA CASCA DE free lambda lt chains,S 12.7 mg/L 5.7-26 .3 Not Available [facility] ([facility]) [address] [facility], [place], [address], 05/18/2024 09:20:16 05/07/20 24 05/11/2024 MULTI PLE MYELO MA CASCA DE kappa/lambda ratio,S 1.24 0.26-1 .65 Not Available [facility] ([facility]) [address] [facility], [place], [address], 05/18/2024 09:20:16 05/07/20 24 05/11/2024 MULTI PLE MYELO MA CASCA DE pdf . Not Available [facility] ([facility]) [address] [facility], [place], [address], 05/18/2024 09:20:16 05/07/20 24 05/11/2024 lab resul t comment: Commen t Consi maki order ing urine immun ofixa tion (uIFE ) to rule out Amylo idosi s (AL). Not Available [facility] ([facility]) [address] [facility], [place], [address], 05/18/2024 09:20:17 05/07/20 24 05/08/2024 HEMOG LOBIN A1C hemoglobin A1C 5.2 % 4.8-5. 6 normal Predi abete s: 5.7 - 6.4 Diabe kate: >6.4 Glyce avery contr ol for adult s with diabe kate: <7.0 Not Available [facility] ([facility]) [address] [facility], [place], [address], 05/18/2024 09:20:17 05/07/20 24 05/12/2024 MARY BY IFA RFX TITER /MARIAH ANNE-MARIE MARY by ifa rfx titer/patter n NEGATI VE Negat ilsa <1:80 Borde rline 1:80 Posit ilsa >1:80 ICAP nomen clatu re: AC-0 For more infor matio n about Hep-2 cell patte rns use ANApa ttern s.org , the offic ial daphnei te for the Inter natio nal Conse nsus on Antin uclea r Antib ashu (MARY) Patte rns (ICAP ). Not Available [facility] ([facility]) [address] [facility], [place], [address], 05/18/2024 09:20:18 11/29/1907/25/2020 MRI, brain , w/o contr ast No observ ation record ed. [email or web address] Not Available 2022 11:57:11 11/29/1904/21/2020 CT, head + brain , w/o contr ast No observ ation record ed. [email or web address] Not Available 2022 11:58:15 11/29/19 23 11/20/2019 CT, head + brain , w/o contr ast No observ ation record ed. [email or web address] Not Available 2022 11:59:22 12/10/19 23 12/04/2022 elect roenc ephal ogram OVERAL L VOLTAG E: - overal l low voltag e - genera lized loss of physio logica l activi ty TRANSFORMATION ANALYST IOR BACKGR OUND ACTIVI TY: - no clear defense analyst ior backgr ound rhythm BACKGR OUND FAST ACTIVI TY: - low voltag e - 15-25 hz activi ty - rhythm ical in appear ance - occurr ing in the fronto centra l region s - within grossl y normal limits of symmet ry BACKGR OUND SLOW ACTIVI TY: - medium voltag e - 3-6 hz activi ty - semirh ythmic al in appear ance - occurr ing diffus judi - within grossl y normal limits of symmet ry DROWSY ACTIVI TY: - medium voltag e approx imatel y 3-6 hz activi ty with drowsi ness - semirh ythmic al in appear ance - within grossl y normal limits of symmet ry EPILEP TIFORM ACTIVI TY: - no clear epilep tiform activi ty or latera lizing signs were seen interi ctally No photic drivin g was identi fied, a normal varian t. Hyperv entila tion was not attemp rowan. SUMMAR Y: A mildly abnorm al awake and drowsy EEG becaus e of genera lized loss of physio logica l activi ty, includ ing a defense analyst ior backgr ound rhythm , in the settin g of low voltag e. No clear epilep tiform activi ty or latera lizing activi ty was identi fied. COMMEN T: The EEG is sugges tive of the presen ce of a subtle -to-mi ld genera lized cerebr al distur bance. Notati on of the absenc e of a defense analyst ior backgr ound rhythm due to a possib le normal varian t, howeve r the low voltag e and absenc e of other physio logica l activi ty is more suppor tive of a pathol ogical cause. Clinic al and radiog raphic correl ation are recomm ended. Additi onally , no sleep was captur ed (albei t attemp rowan) during this record ing. If clinic al suspic ion of seizur e disord er is high, a sleep- depriv ed or extend ed EEG may be obtain ed. Beth Lopez MD Electr onical ly signed 023 01:00 [email or web address] Not Available 2022 06:58:05 12/18/19 23 12/17/2022 MRI, brain , w/o contr ast No observ ation record ed. [email or web address] [facility] - [address], [place], [address], 12/17/2022 16:31:04 02/04/20 23 01/31/2023 neuro psych ologi aimee testi ng* No observ ation record ed. [email or web address] Not Available 2022 07:04:14 05/04/20 24 05/03/2024 US, duple x, carot id arter y [facility] Caroti d Duplex Report : Date of Servic e: 024 Test Indica tion: Rule out severe extrac ranial stenos is. CPT Code: 65189. Modifi cation of the Societ y of Radiol ogists in Ultras ound (SRU) Consen luna Confer ence Criter ia for Dive Superintendent al Caroti d Artery Stenos is for Implem entati on in IAC-Ac credit ed Vascul ar Labora tories (2022). SUMMAR Y: Both caroti d system s were scanne d in transv erse and sagitt al planes . Peak systol ic veloci ties were normal as record ed from the proxim al, mid, and distal common caroti d arteri es (CCA). Peak systol ic veloci ties were normal as record ed from the proxim al, mid, and distal international manager al caroti d arteri es (ICA). Peak systol ic veloci ties were normal as record ed from lamp cleaner al caroti d arteri es (ECA). The ICA/CC A ratio was obtain ed bilate rally and was within the normal limits . Verteb ral arteri es were visual ized and record ed bilate rally with antegr katie flow. Mild calcif ied plaque format ion is seen in the bilate ral caroti d bulbs (dista l CCA/pr oximal ICA) but with less than 50% stenos is measur ed on each side. Mildly increa sed intima l wall thickn ess noted in the bilate ral CCA. IMPRES MATY: Mildly abnorm al caroti d and verteb ral duplex scan bilate rally: 1) Mild calcif ied plaque format ion is seen in both caroti d bulbs but there is no hemody namica lly signif icant stenos is. 2) Mildly increa sed intima l wall thickn ess noted in the bilate ral common caroti d arteri es, likely seen with advanc ed age and hypert ension . 3) Verteb ral flow is antegr katie bilate rally. Thank you for the opport [place] to partic ipate in the care of your patien t. Alexander kurtz M.D. Electr onical ly signed on 024 at 5:05 PM [email or web address] Not Available 2023 14:56:42 05/05/20 24 05/03/2024 US, doppl er, trans crani al, intra crani al arter ies, compl ete No observ ation record ed. [email or web address] Not Available 2023 14:57:13 05/19/20 24 05/18/2024 elect romyo gram + nerve condu ction study No observ ation record ed. [email or web address] Not Available 2023 14:56:34 06/01/20 24 05/03/2024 MRI, brain , w/o contr ast No observ ation record ed. [email or web address] [facility] [place] [address], [facility] , [address], 06/28/2024 14:56:55 01/01/20 25 12/31/2024 elect romyo gram + nerve condu ction study No observ ation record ed. ashley Not Available 16:01:30 Result Notes None recorded. Problems Name Problem SNOMED Code Status Onset Date Resolution Date Notes Provider Name and Address Organization Details Recorded Time Trigeminal neuralgia [id number] Active 2014 ([id number]) Other trigeminal autonomic cephalgias Not Available [facility] 06:32:51 Problem Notes None recorded. Procedures Surgical History Date Name Laterality Status Provider Name and Address Organization Details Recorded Time 5 Cataract Surgery completed Ira Torres MD - [facility] 12/28/2024 06:15:17 3 Prostate Surgery completed MEHDI RODRIGUEZ MD [address] [place] [address],[address], [place], [id number], MD - [facility] 04/27/2024 10:39:12 9 Cancer Surgery completed Ira Torres MD - [facility] 12/28/2024 06:15:16 Imaging Results None recorded. Procedure Notes None recorded. Medical Equipment None Reported. Allergies No known drug allergies Medications Name Sig Start Date Stop Date Status Note LastModified by Organization Details LastModified Time latanoprost 0.005 % eye drops LOCATION: LEFT EYE. INSTILL 1 DROP INTO LEFT EYE EVERY NIGHT AT BEDTIME active Not Available Not Available No t Available atorvastati n 10 mg tablet TAKE 1 TABLET (10 MG) BY MOUTH DAILY AT BEDTIME active Not Available Not Available No t Available azithromyci n 250 mg tablet TAKE 2 TABLETS BY MOUTH TODAY, THEN TAKE 1 TABLET DAILY FOR 4 DAYS DIRECTED 04/27 completed Not Available Not Available Not Available ofloxacin 0.3 % eye drops APPLY 1 DROP INTO LEFT EYE FOUR TIMES A DAY AFTER SURGERY 11/27 completed Not Available Not Available Not Available tolterodine ER 4 mg capsule,ext ended release 24 hr TAKE 1 CAPSULE BY MOUTH EVERY DAY 04/27 completed Not Available Not Available Not Available rizatriptan 10 mg tablet PLEASE SEE ATTACHED FOR DETAILED DIRECTION S active Not Available Not Available No t Available tramadol 50 mg tablet TAKE 1 TABLET BY MOUTH EVERY 6 HOURS FOR PAIN 04/27 completed Not Available Not Available Not Available prednisolon e acetate 1 % eye drops,suspe nsion APPLY 1 DROP INTO LEFT EYE FOUR TIMES A DAY AFTER SURGERY 11/27 completed Not Available Not Available Not Available indomethaci n 50 mg capsule Take 1 capsule upto three times daily for pain 11/27 completed Not Available Not Available Not Available dorzolamide 22.3 mg-timolol 6.8 mg/mL eye drops INSTILL 1 DROP INTO BOTH EYES TWICE A DAY 11/27 completed Not Available Not Available Not Available mometasone 0.1 % topical ointment 1 APPLICATI ON TO (AFFECTED ) SKIN TOPICALLY DAILY 04/27 completed Not Available Not Available Not Available danazol 100 mg capsule 11/27 completed Not Available Not Available Not Available brimonidine 0.15 % eye drops INSTILL 1 DROP IN BOTH EYES 3 TIMES A DAY 11/27 completed Not Available Not Available Not Available amoxicillin 500 mg-potassiu m clavulanate 125 mg tablet TAKE 1 TABLET BY MOUTH EVERY 12 HOURS FOR 10 DAYS 04/27 completed Not Available Not Available Not Available Restasis 0.05 % eye drops in a dropperette INSTILL 1 DROP INTO BOTH EYES TWICE A DAY (180 VIALS, 3 MONTHS SUPPLY) 04/27 completed Not Available Not Available Not Available ciprofloxac in 0.3 %-dexametha sone 0.1 % ear drops,suspe nsion INSTILL 4 DROPS INTO AFFECTED EAR TWICE A DAY FOR 7 DAYS active Not Available Not Available No t Available tadalafil 10 mg tablet TAKE 1 TABLET BY MOUTH EVERY DAY NEEDED active Not Available Not Available No t Available chlorhexidi ne gluconate 0.12 % mouthwash 15ML RAINSE AND SPIT OUT TWICE DAILY AFTTER BREAKFAST AND AT BEDTIME 04/27 completed Not Available Not Available Not Available multivitami n active Not Available Not Available Not Available brimonidine 0.2 %-timolol 0.5 % eye drops APPLY ONE DROP TO BOTH EYES 2 TIMES A DAY. active Not Available Not Available No t Available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
--- OUTSIDE RECORDS SUMMARY | 2025-03-10 16:13 | XMS_ITS | Clinical Summary ---
Author Organization [facility] Address [address], [place] Phone Care Team Providers Care Candy Cutter Hand Name Role Phone Kris Ming Garcia Primary Care Provider [phone] Social History Tobacco Use Types Packs/Day Years Used Date Smoking Tobacco: Never Assessed Sex and Gender Information Value Date Recorded Sex Assigned at Not on file Legal Sex Male 10:08 AM EST Gender Identity Not on file Sexual Orientation Not on file Last Filed Vital Signs Vital Sign Reading Time Taken Comments Blood Pressure 143/87 11/17/2019 2:05 PM EST Pulse 53 11/17/2019 2:05 PM EST Temperature 36.3 C (97.3 F) 11/17/2019 2:05 PM EST Respiratory Rate - - Oxygen Saturation - - Inhaled Oxygen Concentration - - Weight 70.7 kg (155 lb 12.8 oz) 11/17/2019 2:05 PM EST Height 177.8 cm (5' 10) 11/17/2019 2:05 PM EST Body Mass Index 22.35 11/17/2019 2:05 PM EST Plan of Treatment Health Maintenance Due Date Last Done Comments DTaP/Tdap/Td Vaccines 1945 Lipid Panel 1945 Medicare Annual Wellness (AWV) 1945 Hepatitis C Screening 1964 Pneumococcal Vaccine: 65+ Years (1 of 1 - PCV) 996 Zoster Vaccines (1 of 2) 1996 Influenza Vaccine (Season Ended) 2025 Insurance MEDICARE PART A AND B Care Teams Candy Cutter Hand Relationship Specialty Start Date End Date Ming Ponce [address] [facility] [address] [place] [id number] PCP - General 05/08/15
--- OUTSIDE RECORDS SUMMARY | 2025-03-10 16:13 | XMS_ITS | Encounter Summary ---
Author Organization [facility] Address [address] [place] [address] Phone Care Team Providers Care Underwriting Specialist Name Role Phone Walt Cerda MD Primary Care Provider [phone] Encounter Details Date Type Department Care Team (Late st Contact Info) Description 08/18/2020 Procedure [facility] [address] [place], [place] [id number] Social History Tobacco Use Types Packs/Day Years Used Date Smoking Tobacco: Never Smokeless Tobacco: Never Alcohol Use Standard Drinks/Week Comments Yes 1 (1 standard drink = 0.6 oz pur e alcohol) daily Sex and Gender Information Value Date Recorded Sex Assigned at Not on file Legal Sex Male 4:12 PM EST Gender Identity Not on file Sexual Orientation Not on file documented as of this encounter Functional Status * Are you deaf or do you have serious difficulty hearing? Answer Date of Assessment Author No 08/18/2020 1:06 PM EST Sea Terrell * Are you blind or do you have serious difficulty seeing, even when wearing glasses? Answer Date of Assessment Author No 08/18/2020 1:06 PM EST Sea Terrell * Do you have serious difficulty walking or climbing stairs? (5 years old or older) Answer Date of Assessment Author No 08/18/2020 1:06 PM EST Sea Terrell documented as of this encounter Plan of Treatment Not on file documented as of this encounter Visit Diagnoses Not on filedocumented in this encounter Care Teams Underwriting Specialist Relationship Specialty Start Date End Date Walt Cerda MD [address] [facility] [address] [place] [address] PCP - General Geriatric Medicine 08/18/20 documented as of this encounter
--- OUTSIDE RECORDS SUMMARY | 2025-03-10 16:13 | XMS_ITS | Referral Summary ---
Author Organization [facility] Address [address] [place] [address] Phone Care Team Providers Care Waste Recycler Name Role Phone KrisMing Radha Primary Care Provider [phone] Social History Tobacco Use Types Packs/Day Years [...] 11/17/2019 2:05 PM EST Plan of Treatment Not on file Insurance MEDICARE PART A AND B Care Teams Waste Recycler Relationship Specialty Start Date End Date Ming Ponce [address] [facility] [address] [place] [address] PCP - General 05/08/15
--- OUTSIDE RECORDS SUMMARY | 2025-03-10 16:13 | XMS_ITS | Data Portability ---
Author Organization [facility] STEFANO - Andrae Valencia DPM Address [address] [place] [address] Care Team Providers Care Android Ui Developer Name Role Phone SHAD GOMEZ Primary Care Provider SHAD GOMEZ Referring Provider [phone] Assessment No assessment recorded. Plan of Treatment Reminders Order Date Submit Date Provider Last Modified By Organization Details Last Modified Time Details Appointments None record ed. Lab None record ed. Referral None record ed. Procedures None record ed. Surgeries None record ed. Imaging None record ed. Medication Orders None record ed. Patient TargetsNo targets recorded. Patient Instructions Encounter Date Encounter Id Patient Instructions Last Modified By Organization Details Last Modified Time 11/04/2018 [id number] He was told to use terbinafine cream daily inter digitally for at least 2-3 weeks [email or web address] Not available 11/04/2018 16:09:58 Reason for Referral None Reported. Results Created Date Observation Date Name Description Value Unit Range Abnormal Flag Note LastModifiedBy Organization Detail LastModifiedTime 12/25/1911/23/2024 imagi ng/di agnos tic resul t No observ ation record ed. [facility] [address], , 12/24/2024 10:08:00 Result Notes None recorded. Procedures Surgical History Date Name Laterality Status Provider Name and Address Organization Details Recorded Time 11/04/19 19 Procedure completed Andrae Valencia DPM [address], [place], [address], [facility] 11/04/2018 16:05:08 Prostatectomy (turp) completed Kya Owen [facility] 11/04/2018 09:49:29 Imaging Results None recorded. Procedure Notes None recorded. Medical Equipment None Reported. Allergies No known drug allergies Medications Name Sig Start Date Stop Date Status Note LastModified by Organization Details LastModified Time rizatriptan 10 mg tablet active Not Available Not Available Not Available ketorolac 0.5 % eye drops INSTILL 1 DROP 4 TIMES DAILY IN RIGHT EYE active Not Available Not Available No t Available Combigan 0.2 %-0.5 % eye drops INSTILL 1 DROP INTO BOTH EYES TWICE A DAY. active Not Available Not Available No t Available Vitals Date Recorded Body height Body mass index (BMI) Body weight Provider Name and Address Organization Details Last Updated DateTime 11/04/2018 182.88 cm 21 kg/m2 20049.82 g [facility] 11/04/2018 09:48:23 Social History Question Answer Notes LastModified by Organizat ion Details LastModified Time Tobacco Smoking Status Never Smoker Kya Owen [facility] 11/04/2018 09:49:10 What Was The Date Of Your Most Recent Tobacco Screening? 11/04/2018 Information n ot available 04/17/2019 Sex: Unknown Functional Status None recorded. Mental Status None recorded. Family History Relationship Description Onset Age of this Age Resolved Age Notes LastModified by Organization Details LastModified Time Mother Diabetes mellitus [email or web address] Not available 2018 09:48:57 Medical History No medical history recorded. Past Encounters Encounter ID Performer Location Encounter Start Date Encounter Closed Date Diagnosis/Indication Diagnosis SNOMED-CT Code Diagnosis ICD10 Code Diagnosis Note [id number] Andrae Valencia DPM [facility]* [address] [place] [address] 11/04/2018 09:46:57 11/04/2018 09:49:47 Foreign body of foot 627550497 S99.822A Tinea pedis 2208762 B35. 3 Health Concerns Section Related Observation LastModified by Organization Detai ls LastModified Time None Recorded Concern Status LastModified by Organization Details LastModified Time None Recorded Advance Directives Directive None Recorded Payers Insurance Date Sequence Insurance Name Policy Number Policy Lares Covered Member ID Lares Member ID Guarantor Name 11/04/2018 2 AARP PLAN F Peter Gonsales [id number] Peter Gonsales 11/05/2018 1 MEDICARE-[place]/Lorri OSORIO (MEDICARE) Peter Gonsales [id number] Peter Gonsales Notes Date Note Type Note Provider Name and Address Organization Details Recorded Time 11/04/2018 text/html He is a 73-year-old male presents today complaining of pain in his left heel. He had gone on a trip to [place] when it started to hurt. He believes he has a foreign body in his foot. He is also complaining of chronic athlete's foot between his toes. He admits to apply an Anti- fungal Cream but not consistently Andrae Valencia DPM [address], [place], [address], [facility] 11/04/2018 16:10:53
--- OUTSIDE RECORDS SUMMARY | 2025-03-10 16:13 | XMS_ITS | Encounter Summary ---
Author Organization [facility] Address [address] [place] [address] Care Team Providers Care Java Programmer Analyst Name Role Phone Walt Cerda MD Unavailable [phone] Walt Cerda MD Primary Care Provider [phone] Janet Singleton PA-C Primary Care Provider + [phone] Reagan Stockton MD Unavailable Encounter Details Date Type Department Care Team (Late st Contact Info) Description 10/10/2020 Orders Only [facility] COVID VACCINE SITE [address] [place] [address] Building A, Floor 1, Conference Room 3 [place] [address] Samira Cedeño MD ROLANDO [address] [facility] Level [place], [place] Need for vaccination Social History Tobacco Use Types Packs/Day Years Used Date Smoking Tobacco: Never Smokeless Tobacco: Never Alcohol Use Standard Drinks/Week Comments Yes 1 (1 standard drink = 0.6 oz pur e alcohol) daily AUDIT-C Answer Date Recorded Q1: How often do you have a drink containing alcohol? 4 or more times a week 08/29/2020 Q2: How many drinks containi ng alcohol do you have on a typical day when you are drinking? 1 or 2 0 Q3: How often do you have si x or more drinks on one occasion? Never 08/29/2020 PHQ-2 Answer Date Recorded PHQ-2 Score 1 07/17/2020 Sex and Gender Information Value Date Recorded Sex Assigned at Male 07/13/2020 8:35 PM EDT Legal Sex Male 9:38 PM EST Gender Identity Male 07/13/2020 8:35 PM EDT Sexual Orientation Straight 07/13/2020 8: 35 PM EDT documented as of this encounter Plan of Treatment Not on file documented as of this encounter Visit Diagnoses Diagnosis Need for vaccination Need for prophylactic vaccination and inoculation against unspecified single disease documented in this encounter Care Teams Java Programmer Analyst Relationship Specialty Start Date End Date Walt Cerda MD [address] [address] [place] [address] PCP - General Family Medicine 03/23/20 11/01/24 Janet Singleton PA-C [address] [place] [address] [place] [address] PCP - General Electric Cutter Operator 11/02/24 Reagan Stockton MD [address] [place] [address] PCP - Specialty Referring 1 Urology 11/17/24 Walt Cerda MD [address] [place] [address] [place] [address] Family Medicine 11/20/19 documented as of this encounter
--- OUTSIDE RECORDS SUMMARY | 2025-03-10 16:13 | XMS_ITS | Patient Health Record ---
Author Organization [facility] Address [address] [place] [address] 60 MD MAXIME [address] Care Team Providers Care Glue Mill Operator Name Role Phone RAYSHAD SINCLAIR Primary Care Provider UnavailRuby Austin Unavailable [phone] Andrae Prescott Unavailable [phone] Tiara Chao Unavailable [phone] Ruby Anderson Unavailable [phone] Marzena Escoto Unavailable [phone] Jory Caban Unavailable [phone] Bharath Newton Unavailable [phone] Theresa Zuleta Unavailable [phone] Allergies No Known Allergies Reason For Referral No Information Medications Medication SIG (Take, Route, Frequency, Duration) [...] EVERY DAY Oral for 30 Days Active Problems Problem Type SNOMED Code ICD Code Onset Dates Problem Status W/U Status Risk Notes Problem Acute eczematoid otitis externa (71408224) Acute eczematoid otitis externa, bilateral (H60.543) Active confirmed Problem 4430683 Other otitis externa, left ear (H60.8X2) Active confirmed Problem Impacted cerumen (42457720) Impacted cerumen, bilateral (H61.23) Active confirmed Problem Title:Bila teral impacted cerumen Problem Acute serous otitis media of left ear (998038769742127 1) Acute serous otitis media, left ear (H65.02) Active confirmed Problem Eustachian tube disorder (75401707) Unspecified Eustachian tube disorder, left ear (H69.92) Active confirmed Problem Eustachian tube disorder (95958801) Unspecified Eustachian tube disorder, bilateral (H69.93) Active confirmed Problem Foreign body in left ear (871551343617807 00) Foreign body in left ear, initial encounter (T16.2XXA) Active confirmed Problem History of fall (173659469) History of falling (Z91.81) Active confirmed Problem Title:At low risk for fall Problem Sensorineural hearing loss, bilateral (248135681) Sensorineural hearing loss (SNHL) of both ears (H90.3) Active confirmed Vital Signs Height-cm 177.80 cm 12/09/2024 Weight-kg 68.04 kg 12/09/2024 Height 70.00 in 12/09/2024 Weight 150 lbs 12/09/2024 BMI 21.52 kg/m2 12/09/2024 Encounters Encounter Location Date Provider Diagnosis 9 [facility] Leonardo Carmen [address] [facility] [place] [address]Billy CARMEN MD 04/05/2024 Marzena Ogoshi Impacted cerumen of left ear H61.22 and Impacted cerumen of right ear H61.21 9 Mehul [facility] Leonardo Carmen [address] Tiara [facility] Osman CARMEN MD 07/12/2024 Marzena Ogoshi Impacted cerumen, bilateral H61.23 9 Car[facility] Leonardo Carmen [address] DAV[address] 153Billy CARMEN MD 11/30/2024 Ruby Rice Impacted cerumen, bilateral H61.23 and Sensorineural hearing loss (SNHL), bilateral H90.3 9 Mehul [facility] Leonardo Carmen [address] [facility] 153Billy CARMEN MD 12/09/2024 Bharath Pugaheimer Other otitis externa , left ear H60.8X2 9 [facility] Leonardo Carmen [address] [facility] [address] LEONARDO CARMEN MD 01/19/2025 Jory Caban 9 [facility] 1610 Leonardo Carmen MD 08/18/2024 Theresa Kelly 9 [facility] [address] [facility] 1610 Leonardo Carmen MD 10/13/2024 Jory Caban 9 [facility] [facility] 1610 Leonardo Carmen MD 12/07/2024 Ruby Dannieol 9 [facility] [address] [facility] 1535 LEONARDO CARMEN MD 07/15/2024 Tiara Warren Assessments Encounter Date Diagnosis (ICD Code) Assessment Notes Treatment Notes Treatment Clinical Notes Section Notes 04/05/2024 Impacted cerumen of right ear (ICD-10 - H61.21) Disimpaction performed bilaterally under otomicroscopy. Symptoms improved upon disimpaction. Ear exam otherwise normal. 04/05/2024 Impacted cerumen of left ear (ICD-10 - H61.22) Disimpaction performed bilaterally under otomicroscopy. Symptoms improved upon disimpaction. Ear exam otherwise normal. 07/12/2024 Impacted cerumen, bilateral (ICD-10 - H61.23) Cerumen cleared bilaterally. Ear exam otherwise normal. He is scheduled to get new hearing aids with our hearing aid studio tomorrow. 11/30/2024 Impacted cerumen, bilateral (ICD-10 - H61.23) Cerumen cleared bilaterally. Symptoms improved upon cerumen removal. Ear exam otherwise normal. Suggested hydrogen peroxide 3-4 months. Audiogram shows bilateral mid frequency decline in hearing compared with audiogram from 06/2024. He will follow up with hearing studio for hearing aid adjustment. 11/30/2024 Sensorineural hearing loss (SNHL), bilateral (ICD-10 - H90.3) Cerumen cleared bilaterally. Symptoms improved upon cerumen removal. Ear exam otherwise normal. Suggested hydrogen peroxide 3-4 months. Audiogram shows bilateral mid frequency decline in hearing compared with audiogram from 06/2024. He will follow up with hearing studio for hearing aid adjustment. 12/09/2024 Other otitis externa, left ear (ICD-10 - H60.8X2) There is left otitis externa on exam that was likely induced by recent ear cleaning. Mini-debidement performed and ofloxacin applied. He will continue drops twice daily for the next week. Follow up at that time. Plan Of Treatment Pending Test Test Name Order Date EAR IRRIGATION 10/01/2023 Insurance Providers Payer Name Payer Address Payer Phone Subscriber Number Group Number Insured Name Patient Relationship to Insured Coverage Start Date Coverage End Date Medicare [employer] [address] PART B CLAIMS [employer] [place] [phone] [id number] Peter Gonsales Self - patient is the insured 7 [facility] [address] [place] [address] [id number] Peter Gonsales Self - patient is the insured 9 Medical (General) History Medical History History ICD Code Balance disorder Dizziness Migraine Headache Hearing Loss Sleep Apnea Hyperlipidemia Surgical History Surgery Date(Month/Year) Cataract Surgery Prostate Surgery
--- OUTSIDE RECORDS SUMMARY | 2025-03-10 16:13 | XMS_ITS | Clinical Summary ---
Author Organization [facility] Address [address] [place] [address] Phone Care Team Providers Care Sales Agent Casualty Insurance Name Role Phone Walt Cerda MD Primary Care Provider [phone] Allergies No known active allergies Medications brimonidine-bk olol (Combigan) 0.2-0.5 % ophthalmic solution Combigan 0.2 %-0.5 % eye drops Active ketorolac (ACULAR) 0.5 % ophthalmic solution ketorolac 0.5 % eye drops INSTILL 1 DROP 4 TIMES DAILY IN RIGHT EYE Active rizatriptan (MAXALT) 10 MG tablet rizatriptan 10 mg tablet Active dorzolamide (TRUSOPT) 2 % ophthalmic solution 1 drop 3 (three) times daily Active Active Problems No known active problems Social History Tobacco Use Types Packs/Day Years [...] Sign Reading Time Taken Comments Blood Pressure 133/67 08/18/2020 5:10 PM EST Pulse 53 08/18/2020 5:10 PM EST Temperature 36.2 C (97.1 F) 08/18/2020 4:49 PM EST Respiratory Rate 18 08/18/2020 4:50 PM EST Oxygen Saturation 99% 08/18/2020 5:15 PM EST Inhaled Oxygen Concentration - - Weight 72.8 kg (160 lb 8 oz) 08/18/2020 1:41 PM EST Height 177.8 cm (5' 10) 08/18/2020 1:41 PM EST Body Mass Index 23.03 08/18/2020 1:41 PM EST Plan of Treatment Not on file Insurance [facility] MEDICARE SUPP [id number] MEDICARE PART A AND B [facility] MEDICARE SUPP [id number] MEDICARE PART A AND B [facility] MEDICARE SUPP [id number] MEDICARE PART A AND B [facility] MEDICARE SUPP [id number] MEDICARE PART A AND B Care Teams Sales Agent Casualty Insurance Relationship Specialty Start Date End Date Walt Cerda MD [address] [address] [place] [address] PCP - General Geriatric Medicine 08/18/20
--- OUTSIDE RECORDS SUMMARY | 2025-03-10 16:13 | XMS_ITS | Encounter Summary ---
Author Organization [facility] Address [address] [place] [address] Care Team Providers Care Charter Bus Driver Name Role Phone Unknown, Provider Primary Care Provider + [phone] Unknown, Provider Primary Care Provider + [phone] Walt Cerda MD Unavailable [phone] Walt Cerda MD Primary Care Provider [phone] Walt Cerda MD Primary Care Provider [phone] Janet Singleton PA-C Primary Care Provider [phone] Reagan Stockton MD Unavailable Encounter Details Date Type Department Care Team (Late st Contact Info) Description 11/21/2007 Historical Encounter [facility] HISTORIC Provider, Historical Social History Tobacco Use Types Packs/Day Years Used Date Smoking Tobacco: Never Assessed Sex and Gender Information Value Date Recorded Sex Assigned at Male 07/13/2020 8:35 PM EDT Legal Sex Male 9:38 PM EST Gender Identity Male 07/13/2020 8:35 PM EDT Sexual Orientation Straight 07/13/2020 8: 35 PM EDT documented as of this encounter Progress Notes * Provider, Historical - 11/23/2007 12:03 AM EST Name: Peter Gonsales History: [id number] Address: [address] [place] [address] Visit Date: 11/21/2007 [facility] : 1945 Location: 1003 Race: White Document No: [id number] Gender: Male Primary Provider: Houston Cole Other Provider: Mr. Gonsales is a previous patient of Dr. Boss. He is a 62-year- old while male who noted multiple large red dots yesterday in the right eye and today smaller red dots and some blurring of the central vision in the right eye. 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 He has had laser retinopexy for tear in 02/26 and prophylactic laser retinopexy OD in 03/28 followed by prophylactic laser retinopexy OS on 06/24/07. 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 There is no relevant family history. He is not diabetic. There is no hypertension. He is known to have high PSA, but he is still noted to have prostate cancer. His medications are Cialis for erectile dysfunction. He is not on any anticoagulants, but did use Excedrin for headaches on Friday three days ago, which contained acetaminophen, aspirin, and caffeine. He uses Visine eye drops. He has no known drug allergies. He has never smoked. Major Findings: Added visual acuities were 20/30 2+1, day pinholing to 20/20 -1, and 20/25 -2 OS with no improvement with pinhole. Intraocular pressures by applanation tonometry at 07:25 p.m. was 20 mmHg OD and 19 mmHg OS. There was a slight left relative afferent pupillary defect. Visual phillips were full to confrontation. Slitlamp examination revealed mild blepharitis and mild nuclear sclerosis bilaterally. There was a trace of posterior subcapsular cataract centrally bilaterally. The anterior vitreous in the right eye showed some mild pigment. Dilated extended ophthalmoscopy of the right eye showed a cup- to-disc ratio of 0.2 with a healthy macula but with densely opaque posterior hyaloid over the macula. There was peripapillary atrophy. There was a mild epiretinal membrane and a suggestion of mild diffuse thickening surrounding the fovea. Circumferential scleral depression was performed. He had localized superotemporal retinal detachment of at least one clock-hour with a horseshoe tear, which was surrounded by confluent laser retinopexy. There was still superior laser retinopexy and inferotemporal laser retinopexy. There was a small area of inferonasal lattice with average retinopexy. At approximately 2 to 2.30 o' clock, there was a small retinal break without any subretinal fluid or pigmentation. Dilated extended ophthalmoscopy of the left eye showed a cup-to-disc ratio of 0.2. The disc was paler than the right. There was peripapillary atrophy. Superotemporally, there was an area of lattice degeneration, which was surrounded by confluent laser retinopathy and almost three clock-hours of laser retinopexy in the inferotemporal periphery. I discussed the risk and benefits of laser retinopexy with Mr. Gonsales. I explained to him that laser retinopexy will reduce the risk of developing retinal detachment. It is still possible that a detachment could develop before the laser scars had developed any mechanical strength or from development of a second tear. I explained to him that laser retinopexy would not improve his vision. He knows that the vitreous floaters over his macula can only be improved with vitrectomy surgery and given the lattice degeneration and the intrinsic risk of vitrectomy that this would not be indicated unless he had another additional pathology requiring vitrectomy. Written informed consent was obtained. I also explained to Mr. Gonsales that there is a posterior vitreous detachment possibly in evolution and that a further retinal tear was quite possible. I explained the symptoms of retinal detachment and the importance of contacting the retinal division urgently if he should experience such symptoms. He knows to make an appointment with one of the retinal faculty within the next 10 days. Retinopexy was performed using the Nagi laser with 20 millisecond duration and 500 to 600 milliwatts power, applied using the SuperQuad 160 lens with a 200 microns spot size. 314 spots were applied. The patient tolerated the procedure well and no complications occurred. DICTATED BY: HOUSTON COLE MD PHD [id number] SIGNED BY: Heydi COLE THIS DOCUMENT HAS BEEN ELECTRONICALLY SIGNED. DATE SIGNED: 11/23/2007 Note: This note provides information pertaining only to a specific event. A more detailed medical history is available in the Medical Record. documented in this encounter Plan of Treatment Not on file documented as of this encounter Visit Diagnoses Not on filedocumented in this encounter Care Teams Charter Bus Driver Relationship Specialty Start Date End Date Unknown, Provider PROVIDER UNKNOWN PCP - General 03/25/13 10/24/19 Unknown, Provider PROVIDER UNKNOWN PCP - General 10/25/19 12/23/19 Walt Cerda MD [address] [address] [place] [address] PCP - General Family Medicine 12/24/19 12/24/19 Walt Cerda MD [address] [address] [place] [address] PCP - General Family Medicine 03/23/20 11/01/24 Janet Singleton PA-C [address] [address] [place] [address] PCP - General Fruit Or Nut Farmworker 11/02/24 Reagan Stockton MD [address] [place] [address] PCP - Specialty Referring 1 Urology 11/17/24 Walt Cerda MD [address] [address] [place] [address] Family Medicine 11/20/19 documented as of this encounter
--- OUTSIDE RECORDS SUMMARY | 2025-03-10 16:13 | XMS_ITS | Encounter Summary ---
Author Organization [facility] Address [address] [place] [address] Care Team Providers Care Sight Mounter Name Role Phone Walt Cerda MD Unavailable [phone] Walt Cerda MD Primary Care Provider [phone] Janet Singleton PA-C Primary Care Provider [phone] Reagan Stockton MD Unavailable Encounter Details Date Type Department Care Team (Late st Contact Info) Description 11/12/2020 Orders Only [facility] COVID VACCINE SITE [address] [place] [address] Building A, Floor 1, Conference Room 3 [place] [address] Samira Cedeño MD ROLANDO [address] [facility] Level G [place], [place] Need for vaccination Social History Tobacco [...] Never 08/29/2020 PHQ-2 Answer Date Recorded PHQ-2 Total Score 0 10/24/2020 Sex and Gender Information Value Date Recorded [...] disease documented in this encounter Care Teams Sight Mounter Relationship Specialty Start Date End Date Walt Cerda MD [address] [address] [place] [address] PCP - General Family Medicine 03/23/20 11/01/24 Janet Singleton PA-C [address] [place] [address] [place] [address] PCP - General Data Processing Control Clerk 11/02/24 Reagan Stockton MD [address] [place] [address] PCP - Specialty Referring 1 Urology 11/17/24 Walt Cerda MD [address] [address] [place] [address] Family Medicine 11/20/19 documented as of this encounter
--- OUTSIDE RECORDS SUMMARY | 2025-03-10 16:14 | XMS_ITS | Encounter Summary ---
Author Organization [facility] Address [address] [place] [address] Care Team Providers Care Chief Commercial Officer Name Role Phone Unknown, Provider Primary Care Provider + [phone] Unknown, Provider Primary Care Provider + [phone] Walt Cerda MD Unavailable [phone] Walt Cerda MD Primary Care Provider [phone] Walt Cerda MD Primary Care Provider [phone] Janet Singleton PA-C Primary Care Provider + [phone] Reagan Stockton MD Unavailable Encounter Details Date Type Department Care Team (Late st Contact Info) Description 06/12/2010 Historical Encounter [facility] HISTORIC Provider, Historical Social History Tobacco Use Types Packs/Day Years Used Date Smoking Tobacco: Never Assessed Sex and Gender Information Value Date Recorded Sex Assigned at Male 07/13/2020 8:35 PM EDT Legal Sex Male 9:38 PM EST Gender Identity Male 07/13/2020 8:35 PM EDT Sexual Orientation Straight 07/13/2020 8: 35 PM EDT documented as of this encounter Progress Notes * Provider, Historical - 07/08/2010 12:10 AM EDT Name: Peter Gonsales History: [id number] Address: [address] [place] [address] Visit Date: 06/12/2010 [facility] : 1945 Location: [facility] Race: White Document No: [id number] Gender: Male Primary Provider: Janeth Lux Other Provider: The patient is a very pleasant 64-year-old here for followup of laser to retinal tear in the right eye. He has also traumatic optic neuropathy noted in 2006. He notes no changes in his vision, although his floaters seem to be getting worse the right eye. Physical Examination: Visual acuity today is 20/63, pinhole 20/40 -1 in the right eye, and 20/20 with correction in the left eye. Anterior segment is unremarkable except for nuclear sclerotic cataract cortical changes of both eyes and a posterior subcapsular cataract in the right eye. Intraocular pressure is 20 mmHg in the right eye and 18 mmHg in the left eye. Dilated fundus exam reveals cup-to-disk ratio of 0.4. There is elevated retina temporally that is well barricaded by laser photocoagulation. The peripheral retina is attached. There are no new breaks or retinal tears noted. Dilated fundus exam in the left eye shows some laser retinopexy temporally. There is no subretinal fluid noted. The retina is flat. There is a mild epiretinal membrane. Assessment: Retinal tear with retinal detachment treated by barricade laser in the temporal region in the right eye. He is status post laser retinopexy in the left eye. His examination is stable. Retinal detachment precautions were discussed with the patient, and the patient will return in 3 to 4 months' time for a followup. Dictated, but not read to expedite delivery. REFERRING PHYSICIAN CC LIST: Ming Ponce MD [address] [place] [address] [address] [place] [id number] DICTATED BY: JANETH LUX M.D. [id number] SIGNED BY: JANETH LUX DATE AND TIME SIGNED: 07/09/2010 09:07 AM Note: This note provides information pertaining only to a specific event. A more detailed medical history is available in the Medical Record. documented in this encounter Plan of Treatment Not on file documented as of this encounter Visit Diagnoses Not on filedocumented in this encounter Care Teams Chief Commercial Officer Relationship Specialty Start Date End Date Unknown, Provider PROVIDER UNKNOWN PCP - General 03/25/13 10/24/19 Unknown, Provider PROVIDER UNKNOWN PCP - General 10/25/19 12/23/19 Walt Cerda MD [address] [place] [address] [place] [address] PCP - General Family Medicine 12/24/19 12/24/19 Walt Cerda MD [address] [place] [address] [place] [address] PCP - General Family Medicine 03/23/20 11/01/24 Janet Singleton PA-C [address] [place] [address] [place] [address] PCP - General Triple Valve Tester 11/02/24 Reagan Stockton MD [address] [place] [address] PCP - Specialty Referring 1 Urology 11/17/24 Walt Cerda MD [address] [place] [address] [place] [address] Family Medicine 11/20/19 documented as of this encounter
--- OUTSIDE RECORDS SUMMARY | 2025-03-10 16:14 | XMS_ITS | Encounter Summary ---
Author Organization [facility] Address [address] [place] [address] Care Team Providers Care Platform Man Name Role Phone Unknown, Provider Primary Care Provider + [phone] Unknown, Provider Primary Care Provider + [phone] Walt Cerda MD Unavailable + [phone] Walt Cerda MD Primary Care Provider [phone] Walt Cerda MD Primary Care Provider [phone] Janet Singleton PA-C Primary Care Provider + [phone] Reagan Stockton MD Unavailable Encounter Details Date Type Department Care Team (Late st Contact Info) Description 10/19/[address] [facility] HISTORIC Provider, Historical Social History Tobacco [...] encounter Progress Notes * Provider, Historical - 11/01/2008 12:02 AM EST Name: Peter Gonsales History: [id number] Address: [address] [place] [address] Visit Date: 10/19/2008 [facility] : 1945 Location: 1003 Race: White Document No: [id number] Gender: Male Primary Provider: Janeth Lux Other Provider: Patient missed appointment with Dr. Lux on October 19, 2008. NS letter mailed on November 01, 2008.[facility] SIGNED BY: JANETH LUX THIS DOCUMENT HAS BEEN ELECTRONICALLY SIGNED. DATE SIGNED: 11/16/2008 Note: This note provides information pertaining only to a specific event. A more detailed medical history is available in the Medical Record. documented in this encounter Plan of Treatment Not on file documented as of this encounter Visit Diagnoses Not on filedocumented in this encounter Care Teams Platform Man Relationship Specialty Start Date End Date Unknown, Provider PROVIDER UNKNOWN PCP - General 03/25/13 10/24/19 Unknown, Provider PROVIDER UNKNOWN PCP - General 10/25/19 12/23/19 Walt Cerda MD [address] [place] [address] [place] [address] PCP - General Family Medicine 12/24/19 12/24/19 Walt Cerda MD [address] [place] [address] [place] [address] PCP - General Family Medicine 03/23/20 11/01/24 Janet Singleton PA-C [address] [place] [address] [place] [address] PCP - General Keyboard Action Assembler 11/02/24 Reagan Stockton MD [address] [place] [address] PCP - Specialty Referring 1 Urology 11/17/24 Walt Cerda MD [address] [place] [address] [place] [address] Family Medicine 11/20/19 documented as of this encounter
--- OUTSIDE RECORDS SUMMARY | 2025-03-10 16:14 | XMS_ITS | Data Portability ---
Author Organization [facility] [place] [address] Care Team Providers Care Store Director Name Role Phone RAHAT LAZARO Assessment No assessment recorded. Plan of Treatment Reminders Order Date Submit Date Provider Last Modified By Organization Details Last Modified Time Details Appointments None record ed. Lab None record ed. Referral None record ed. Procedures None record ed. Surgeries None record ed. Imaging None record ed. Medication Orders None record ed. Patient TargetsNo targets recorded. Patient InstructionsNo instructions recorded. Reason for Referral None Reported. Problems Name Problem SNOMED Code Status Onset Date Resolution Date Notes Provider Name and Address Organization Details Recorded Time Nuclear sclerotic cataract 264972785 Active Not Available [facility] 3 03:12:06 Retinal detachment with retinal defect 76481749 Active Not Available [facility] 3 03:12:06 Diplopia 12760434 Active Not Available [facility] 3 03:12:06 Open angle with borderline findings Active Not Available [facility] 3 03:12:06 Anisometropia 2439090 Active Not Available [facility] 3 03:12:06 Epiretinal membrane 890015182 Active Not Available [facility] 3 03:12:06 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 Procedures Surgical History Date Name Laterality Status Provider Name and Address Organization Details Recorded Time Repair retinal detach cplx completed Christen Norris MD [facility] 02/26/2013 15:20:00 Prostatectomy (turp) completed Christen Norris MD [facility] 02/26/2013 15:20:54 Imaging Results None recorded. Procedure Notes None recorded. Medical Equipment None Reported. Allergies No known drug allergies Medications Name Sig Start Date Stop Date Status Note LastModified by Organization Details LastModified Time amoxicillin 500 mg capsule active Not Available Not Available N ot Available acetazolamide ER 500 mg capsule,extended release active Not Available Not Available Not Available ofloxacin 0.3 % eye drops active Not Available Not Available No t Available prednisone 20 mg tablet active Not Available Not Available Not Available acetazolamide 250 mg tablet active Not Available Not Availabl e Not Available acetaminophen 300 mg-codeine 30 mg tablet active Not Available Not Available Not Available ketorolac 0.5 % eye drops active Not Available Not Available No t Available cyclopentolate 1 % eye drops active Not Available Not Available Not Available prednisolone acetate 1 % eye drops,suspension active Not Available Not Avail able Not Available cefuroxime axetil 500 mg tablet active Not Available Not Available Not Available Cialis 20 mg tablet active Not Available Not Available Not Available tinidazole 500 mg tablet active Not Available Not Available No t Available Alphagan P 0.1 % eye drops 1 drop OU BID active Not Available Not Available No t Available Vitals None Recorded Social History Question Answer Notes LastModified by [employer] Details LastModified Time Tobacco Smoking Status Never Smoker Not Available [facility] 07/25/2020 03:37:11 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 Family History Relationship Description Onset Age of this Age Resolved Age Notes LastModified by Organization Details LastModified Time Father Problem catara ct (previ ously record ed as Other) [email or web address] [id number] Not available 09/09/2013 03:12:02 Father Glaucoma [email or web address] [id number] Not available 09/09/2013 03:12:02 Mother Hypertensive disorder previo usly record ed as Hypert ension [email or web address] [id number] Not available 09/09/2013 03:12:02 Mother Diabetes mellitus previo usly record ed as Diabet es [email or web address] [id number] Not available 09/09/2013 03:12:02 Mother Heart disease previo usly record ed as Heart Proble m [email or web address] [id number] Not available 09/09/2013 03:12:02 Medical History No medical history recorded. Past Encounters Encounter ID Performer Location Encounter Start Date Encounter Closed Date Diagnosis/Indication Diagnosis SNOMED-CT Code Diagnosis ICD10 Code Diagnosis Note [id number] MD NORMA Raphael [facility], [address] MD NORMA [id number] 01/18/2013 15:03:31 01/18/2013 16:37:35 [id number] MD LEONARDO Raphael [address] [facility] [address] [place] [address] 03/04/2013 08:58:48 03/04/2013 10:14:33 [id number] MD LEONARDO Raphael [address] [facility], [address] [place] [id number] 07/15/2013 11:33:31 07/15/2013 13:33:34 Health Concerns Section Related Observation LastModified by Organization Detai ls LastModified Time None Recorded Concern Status LastModified by Organization Details LastModified Time None Recorded Advance Directives Directive None Recorded Payers Insurance Date Sequence Insurance Name Policy Number Policy Lares Covered Member ID Lares Member ID Guarantor Name 05/07/2014 1 [id number] Peter Gonsales [id number] Peter Gonsales 05/07/2014 2 MEDICARE Bernice-: [employer] MEDICARE - [place] Peter Gonsales [id number] Peter Gonsales 05/07/2014 2 MEDICARE [place]: [employer] MEDICARE - [place] OTHER [place] Peter Gonsales [id number] T Peter Gonsales
--- OUTSIDE RECORDS SUMMARY | 2025-03-10 16:14 | XMS_ITS | Encounter Summary ---
Author Organization [facility] Address [address] [place] [address] Care Team Providers Care Pusher Operator Name Role Phone Unknown, Provider Primary Care Provider + [phone] Unknown, Provider Primary Care Provider + [phone] Walt Cerda MD Unavailable + [phone] Walt Cerda MD Primary Care Provider [phone] Walt Cerda MD Primary Care Provider [phone] Janet Singleton PA-C Primary Care Provider [phone] Reagan Stockton MD Unavailable Encounter Details Date Type Department Care Team (Late st Contact Info) Description 01/25/2010 Historical Encounter [facility] HISTORIC Provider, Historical Social History Tobacco [...] encounter Progress Notes * Provider, Historical - 01/27/2010 12:05 AM EDT Name: Peter Gonsales History: [id number] Address: [address] [place] [address] Visit Date: 01/25/2010 [facility] : 1945 Location: [facility] Race: White Document No: [id number] Gender: Male Primary Provider: Janeth Lux Other Provider: The patient is a very pleasant 64-year-old gentleman here for followup of her laser to area of vitreous traction in the right eye on 12/29/07. He has subclinical retinal detachment in the right eye. He notes no new symptoms. On examination today, visual acuity is 20/50, pinhole to 20/25 with correction with new glasses. He is 20/20 in the left eye. Anterior segments unremarkable except for trace nuclear sclerotic cataracts in both eyes. Intraocular pressure 9 mmHg in both eyes. Dilated fundus exam reveals extensive laser in the temporal peripherally without barricades subclinical detachments at the 10 o'clock position and the smaller one temporally with a vitreous tractional band that is well sealed by laser. Scleral depression was performed at 360 degrees and no new breaks or retinal or detachment were noted. Dilated fundus exam of the left eye showed cup-to-disc ratio of 0.3. He has chorioretinal scars superiorly and inferiorly, 2 areas of retinal breaks. Scleral depression was performed and no new breaks, retinal tears, or retinal detachment were noted. Assessment is status post 1 month laser photocoagulation to retinal tear and tractional retinal detachment in the right eye. He is doing well. He has also early cataracts which we will observe. Warning signs and symptoms of retinal detachment were discussed with the patient. He will return in 4 months' time or sooner if he has any visual problems. Dictated, but not read to expedite delivery. REFERRING PHYSICIAN CC LIST: Ming Ponce MD [address] [place] [address] [address] [place] [address] DICTATED BY: JANETH LUX M.D. [id number] SIGNED BY: JANETH LUX DATE AND TIME SIGNED: 02/03/2010 12:13 AM Note: This note provides information pertaining only to a specific event. A more detailed medical history is available in the Medical Record. documented in this encounter Plan of Treatment Not on file documented as of this encounter Visit Diagnoses Not on filedocumented in this encounter Care Teams Pusher Operator Relationship Specialty Start Date End Date Unknown, Provider PROVIDER UNKNOWN PCP - General 03/25/13 10/24/19 Unknown, Provider PROVIDER UNKNOWN PCP - General 10/25/19 12/23/19 Walt Cerda MD [address] [place] [address] [place] [address] PCP - General Family Medicine 12/24/19 12/24/19 Walt Cerda MD [address] [place] [address] [place] [address] PCP - General Family Medicine 03/23/20 11/01/24 Janet Singleton PA-C [address] [place] [address] [place] [address] PCP - General Shipping Lead 11/02/24 Reagan Stockton MD [address] [place] [address] PCP - Specialty Referring 1 Urology 11/17/24 Walt Cerda MD [address] [place] [address] [place] [address] Family Medicine 11/20/19 documented as of this encounter
--- OUTSIDE RECORDS SUMMARY | 2025-03-10 16:14 | XMS_ITS ---
Author Name [facility] Organization Unknown Results Test Name/Text Value Interpretation Date Range Source TIBC SerPl-mCnc 254mcg/dL(calc) Normal [id number] 250 - 425 JH_SM Iron SerPl-mCnc 98mcg/dL Normal 50 - 180 J H_SM Iron Satn MFr SerPl 39%(calc) Normal 20 - 48 JH_SM MCH RBC Qn Auto 32.8pg Normal 27 - 33 J H_SM Monocytes/leuk NFr Bld Auto 6.2% Normal _SM PMV Bld Isreal-Sergo 12fL Normal 7.5 - 12 .5 _SM WBC # Bld Auto 5.6Thousand/uL Normal 3.8 - 1 0.8 _SM Lymphocytes # Bld Auto 1344cells/uL Normal 850 - 3900 _SM Monocytes # Bld Auto 347cells/uL Normal 200 - 950 _SM Lymphocytes/leuk NFr Bld Auto 24% Normal _SM Hgb Bld-mCnc 12.7g/dL Below low normal 13.2 - 17.1 JH_SM MCHC RBC Auto-mCnc 34.6g/dL Normal 32 - 36 JH_SM Hct VFr Bld Auto 36.7% Below low normal 38. 5 - 50 JH_SM Eosinophil/leuk NFr Bld Auto 3.2% Normal _SM Eosinophil # Bld Auto 179cells/uL Normal [id number] 15 - 500 _SM Neutrophils # Bld Auto 3690cells/uL Normal [id number] 1500 - 7800 _SM RDW RBC Auto-Rto 12.1% Normal 11 - 15 _ Basophils # Bld Auto 39cells/uL Normal 0 - 2 00 _SM Neutrophils/leuk NFr Bld Auto 65.9% Normal _SM MCV RBC Auto 94.8fL Normal 80 - 100 JH_S M Platelet # Bld Auto 203Thousand/uL Normal 14 0 - 400 _SM Basophils/leuk NFr Bld Auto 0.7% Normal _ RBC # Bld Auto 3.87Million/uL Below low normal 4.2 - 5.8 _ BUN SerPl-mCnc 15mg/dL Normal [id number] 7 - 25 _ Potassium SerPl-sCnc 4.2mmol/L Normal [id number] 3.5 - 5.3 _ Albumin SerPl-mCnc 4.2g/dL Normal [id number] 3.6 - 5. 1 _ Prot SerPl-mCnc 6.4g/dL Normal [id number] 6.1 - 8.1 J H_SM Bilirub SerPl-mCnc 1.1mg/dL Normal [id number] 0.2 - 1. 2 _ Albumin/Glob SerPl 1.9(calc) Normal [id number] 1 - 2.5 _ AST SerPl-cCnc 14U/L Normal [id number] 10 - 35 _ Creat SerPl-mCnc 0.9mg/dL Normal 0.7 - 1.28 _ ALP SerPl-cCnc 73U/L Normal [id number] 35 - 144 _ eGFRcr SerPlBld CKD-EPI 2021 87mL/min/1.73m2 Normal [id number] - _ CO2 SerPl-sCnc 29mmol/L Normal [id number] 20 - 32 _ BUN/Creat SerPl SEE NOTE: Normal [id number] 6 - 22 J H_SM Glucose SerPl-mCnc 77mg/dL Normal [id number] 65 - 99 _SM Calcium SerPl-mCnc 9.1mg/dL Normal [id number] 8.6 - 10 .3 JH_SM Sodium SerPl-sCnc 138mmol/L Normal [id number] 135 - 146 JH_SM Globulin Ser Calc-mCnc 2.2g/dL(calc) Normal [id number] 1.9 - 3.7 JH_SM ALT SerPl-cCnc 18U/L Normal [id number] 9 - 46 JH _SM Chloride SerPl-sCnc 104mmol/L Normal [id number] 98 - 11 0 JH_SM Cholest SerPl-mCnc 120mg/dL Normal [id number] - 200 JH_SM NonHDLc SerPl-mCnc 69mg/dL(calc) Normal [id number] - 13 0 JH_SM LDLc SerPl Calc-mCnc 50mg/dL(calc) Normal [id number] JH_SM HDLc SerPl-mCnc 51mg/dL Normal [id number] - J H_SM Cholest/HDLc SerPl 2.4(calc) Normal [id number] - 5 JH_SM Trigl SerPl-mCnc 106mg/dL Normal [id number] - 150 _SM WBC # Bld Auto 6.6Thousand/uL Normal [id number] 3.8 - 1 0.8 _SM Hgb Bld-mCnc 13.1g/dL Below low normal [id number] 13.2 - 17.1 _SM RBC # Bld Auto 3.99Million/uL Below low normal [id number] 4.2 - 5.8 _SM PMV Bld Isreal-Sergo 11.9fL Normal [id number] 7.5 - 12 .5 _SM Eosinophil # Bld Auto 178cells/uL Normal [id number] 15 - 500 _SM Neutrophils # Bld Auto 4528cells/uL Normal [id number] 1500 - 7800 _SM MCH RBC Qn Auto 32.8pg Normal [id number] 27 - 33 J H_SM Lymphocytes # Bld Auto 1465cells/uL Normal [id number] 850 - 3900 _SM Eosinophil/leuk NFr Bld Auto 2.7% Normal [id number] _SM Hct VFr Bld Auto 38.3% Below low normal [id number] 38. 5 - 50 _ Platelet # Bld Auto 219Thousand/uL Normal [id number] 14 0 - 400 _ Neutrophils/leuk NFr Bld Auto 68.6% Normal [id number] [facility] MCHC RBC Auto-mCnc 34.2g/dL Normal [id number] 32 - 36 _ Monocytes/leuk NFr Bld Auto 5.9% Normal [id number] _ Basophils # Bld Auto 40cells/uL Normal [id number] 0 - 2 00 _ Basophils/leuk NFr Bld Auto 0.6% Normal [id number] _ MCV RBC Auto 96fL Normal [id number] 80 - 100 JH_S M Lymphocytes/leuk NFr Bld Auto 22.2% Normal [id number] [facility] RDW RBC Auto-Rto 12% Normal [id number] 11 - 15 _ Monocytes # Bld Auto 389cells/uL Normal [id number] 200 - 950 [facility] PSA SerPl-mCnc 0.15ng/mL Normal [id number] - [facility] TSH SerPl-aCnc 0.64mIU/L Normal [id number] 0.4 - 4.5 _ History of Medication Use Medication Directions Dispensed Refills Start Date End Date [facility] Ciprofloxacin-dexAME THasone 0.3-0.1 % Ciprofloxacin-dexAME THasone 0.3-0.1 % 12/09/2024 active mometasone 0.1 % mometasone 0.1 % 12/24/2022 active Atorvastatin Calcium 10 MG Atorvastatin Calcium 10 MG active Myrbetriq 50 MG Myrbetriq 50 MG active Rizatriptan Benzoate 10 MG Rizatriptan Benzoate 10 MG active Problems Problem Status Onset Date Problem Type Date of Resoluti on Source Acute eczematoid otitis externa active ProblemAct AMB_ANNENT Eustachian tube disorder active ProblemAct AMB_ANNENT History of fall active ProblemAct AMB _ANNENT Foreign body in left ear active ProblemAct AMB_ANNENT Eustachian tube disorder active ProblemAct AMB_ANNENT Acute serous otitis media of left ear active ProblemAct AMB_ANNENT Impacted cerumen active ProblemAct AM B_ANNENT Assessment and Plan ID Update Date Source Alert Text [facility] - [id number] 07/14/2024 [facility] [id number] COVID Vaccination: This patient has received the [employer] COVID-19 vaccination on 07/14/2024 with lot number [id number] at [address] [facility] [id number] 06/07/2022 [facility] [id number] COVID Vaccination: This patient has received the [employer] COVID-19 vaccination on 06/07/2022 with lot number [id number] at [facility]. [facility] [id number] 03/14/2022 [facility] [id number] COVID Vaccination: This patient has received the [employer] COVID-19 vaccination on 03/14/2022 with lot number [id number] at [facility]. [facility] [id number] 08/05/2021 [facility] [id number] COVID Vaccination: This patient has received the [employer] COVID-19 vaccination on 08/05/2021 with lot number [id number] at [facility]. [facility] [id number] 11/05/2020 [facility] [id number] COVID Vaccination: This patient has received the [employer] COVID-19 vaccination on 11/05/2020 with lot number [id number] at [facility] [place] [facility]. [facility] [id number] 10/07/2020 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 Encounters Encounter Type Encounter Reason Primary Diagnosis Location Date Ambulatory [facility] 01/19/2025 Ambulatory [facility] 12/15/2024 Ambulatory [facility] 12/09/2024 Ambulatory [facility] 12/07/2024 Ambulatory [facility] 11/30/2024 Ambulatory Bradycardia, unspecified Bradycardia, unspecified *[facility] 11/25/2024 Ambulatory Personal history of malignant neoplasm of prostate Personal history of malignant neoplasm of prostate [facility] 11/25/2024 Ambulatory Bradycardia, unspecified Bradycardia, unspecified *[facility] 11/23/2024 Ambulatory Persons encountering health services in other specified circumstances Persons encountering health services in other specified circumstances [facility] 11/02/2024 Ambulatory [facility] 10/13/2024 Ambulatory [facility] 08/18/2024 Ambulatory [facility] 08/06/2024 Ambulatory [facility] 07/15/2024 Ambulatory [facility] 07/12/2024 Ambulatory Transient cerebral ischemic attack, unspecified Transient cerebral ischemic attack, unspecified *[facility] 05/03/2024 Ambulatory [facility] 04/05/2024 Ambulatory [facility] 10/01/2023 Ambulatory [facility] 08/21/2023 Ambulatory Other amnesia [facility] 12/17/2022 Care Team Organization Name Specialty Phone Email Start Date End Da leticia [facility] 12/09/2024 [facility] MIAH SOLIS [facility] 11/30/2024 [facility] MIAH SOLIS Primary Care 11/03/2024 [facility] 08/18/2024 [facility] 12/04/2023 [facility] 12/04/2023 [facility] 08/21/2023 [facility] 06/09/2023 4 [facility] 05/01/2023 [facility] SHAD GOMEZ Primary Care [email or web address] 03/06/2020 0 [facility] SHAD GOMEZ Primary Care [email or web address] 12/23/2019 1 [facility] SHAD GOMEZ Primary Care [email or web address] 11/20/2019 0 [facility] 10/30/2019 0
--- OUTSIDE RECORDS SUMMARY | 2025-03-10 16:14 | XMS_ITS | Encounter Summary ---
Author Organization [facility] Address [address] [place] [address] Care Team Providers Care Bridge Operator Slip Name Role Phone Unknown, Provider Primary Care Provider + [phone] Unknown, Provider Primary Care Provider + [phone] Walt Cerda MD Unavailable + [phone] Walt Cerda MD Primary Care Provider [phone] Walt Cerda MD Primary Care Provider [phone] Janet Singleton PA-C Primary Care Provider + [phone] Reagan Stockton MD Unavailable Encounter Details Date Type Department Care Team (Late st Contact Info) Description 12/21/2009 Historical Encounter [facility] HISTORIC Provider, Historical Social History Tobacco Use Types Packs/Day Years Used Date Smoking Tobacco: Never Assessed Sex and Gender Information Value Date Recorded Sex Assigned at Male 07/13/2020 8:35 PM EDT Legal Sex Male 9:38 PM EST Gender Identity Male 07/13/2020 8:35 PM EDT Sexual Orientation Straight 07/13/2020 8: 35 PM EDT documented as of this encounter Progress Notes * Provider, Historical - 12/30/2009 12:04 AM EDT Name: Peter Gonsales History: [id number] Address: [address] [place] [address] Visit Date: 12/28/2009 [facility] : 1945 Location: [facility] Race: White Document No: [id number] Gender: Male Primary Provider: Janeth Lux Other Provider: The patient is a very pleasant 64-year-old gentleman here for one- week followup laser retinopexy for retinal traction in an area of previous retinal detachment. He notes no visual acuity changes. He is status post multiple sessions of laser photocoagulation to peripheral retinal tears with subclinical retinal detachment in the right eye. Visual acuity 20/25 -2, pinhole is 20/25 with correction in the right eye and 20/60 -2 in the left eye. 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 Intraocular pressure 21 mmHg in both eyes. Dilated fundus exam of the right eye shows subclinical detachments temporally with a area of traction on edge surrounded by laser at the 3 o'clock position and a new area of traction on edge of laser at the 10 o'clock position. No other breaks or detachment were noted. Assessment: History of peripheral retinal tears, both eyes, status post laser photocoagulation. He has subclinical retinal detachment x2 in the right eye and there is a new area of increased traction that is progressing through the previous laser at the 10 o'clock position. The previous area of traction that was treated one week ago shows a progression of the vitreoretinal traction. However, this is well sealed by laser. I recommended that the patient undergo supplemental laser to the 10 o'clock area and he desired to proceed and two Tylenol Extra Strength were given pre-treatment and after 50 minutes, the laser was applied at the slit lamp with Mainster Wide Field lens at 236 plunkett at 350 milliwatts of power and 0.15 second duration with 200 micron spot size to the area at the 10 o'clock and supplemental laser was given also barricading the area of the subclinical detachment all the way down to the 8 o'clock position. The patient tolerated the procedure well. He will return in two weeks' time as the patient's has an upcoming surgery next week. He knows to contact us if there are any problems that should arise sooner. Dictated, but not read to expedite delivery. REFERRING PHYSICIAN CC LIST: Ming Ponce MD [address] [place] [address], [address] [place] [address] DICTATED BY: JANETH LUX M.D. [id number] SIGNED BY: JANETH LUX DATE AND TIME SIGNED: 01/05/2010 11:24 AM Note: This note provides information pertaining only to a specific event. A more detailed medical history is available in the Medical Record. * Provider, Historical - 12/22/2009 12:04 AM EDT Name: Peter Gonsales History: [id number] Address: [address] [place] [address] Visit Date: 12/21/2009 [facility] : 1945 Location: [facility] Race: White Document No: [id number] Gender: Male Primary Provider: Janeth Lux Other Provider: History of Present Illness: The patient is a very pleasant 64- year-old gentleman here for followup of his laserpexy to retinal tears in both eyes with peripheral retinal detachment in the right eye. He notes his vision is same. He notes no new floaters or flashes that are any different than his previous examination. Physical Examination: Today, visual acuity is 20/25 -2 pinhole no improvement in the right eye with correction and 20/20- in the left eye. Anterior segment is unremarkable except for a trace nuclear sclerotic cataracts in both eyes. Intraocular pressure is 20 mmHg in the right eye and 15 mmHg in the left eye. Dilated fundus exam reveals cup-to-disk ratio of 0.2. He has PRK laser superotemporally and inferotemporally and some laser inferiorly. He has subclinical retinal detachments superotemporally and inferotemporally. There is a vitreous strand that extends from the inferior bullous detachment to an area of attached retina that is adjacent to it. Dilated fundus exam of the left eye showed a cup-to-disk ratio of 0.2. He has some laser photocoagulation at 1 o'clock position and the 6 o'clock position that are well sealed. The peripheral retina is attached. Assessment and Plan: History of peripheral retinal tears in both eyes status post laser photocoagulation. He has subclinical retinal detachment x2 in the right eye which is stable. He does have a vitreous strand inserting into attached retina which I recommended laser demarcation to this area. The patient agreed. Risks and benefits of the procedure were discussed with the patient and laser treatment with indirect laser was applied to the right eye in the area of the insertion of the vitreous strand using the Iridex laser with 450-550 milliwatt power with 200-250 milliseconds duration with 56 plunkett with no complications. The patient tolerated the procedure well. He was given Tylenol Extra Strength x2 prior to the procedure. The patient will return in 1 week's time for followup and warning signs and symptoms of retinal detachment were discussed with the patient. Dictated, but not read to expedite delivery. REFERRING PHYSICIAN CC LIST: Ming Ponce MD [address] [facility] [address] [place] [phone] DICTATED BY: JANETH LUX M.D. [id number] SIGNED BY: JANETH LUX DATE AND TIME SIGNED: 01/05/2010 12:34 PM Note: This note provides information pertaining only to a specific event. A more detailed medical history is available in the Medical Record. documented in this encounter Plan of Treatment Not on file documented as of this encounter Visit Diagnoses Not on filedocumented in this encounter Care Teams Bridge Operator Slip Relationship Specialty Start Date End Date Unknown, Provider PROVIDER UNKNOWN PCP - General 03/25/13 10/24/19 Unknown, Provider PROVIDER UNKNOWN PCP - General 10/25/19 12/23/19 Walt Cerda MD [address] [place] [address] [place] [address] PCP - General Family Medicine 12/24/19 12/24/19 Walt Cerda MD [address] [facility] [address] [place] [address] PCP - General Family Medicine 03/23/20 11/01/24 Janet Singleton PA-C [address] [address] [place] [address] PCP - General Instrument Adjuster 11/02/24 Reagan Stockton MD [address] [place] [address] PCP - Specialty Referring 1 Urology 11/17/24 Walt Cerda MD [id number] [place] [address] Family Medicine 11/20/19 documented as of this encounter
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
--- OUTSIDE RECORDS SUMMARY | 2025-03-10 16:14 | XMS_ITS | Encounter Summary ---
Author Organization [facility] Address [address] [place] [address] Care Team Providers Care Plastic Battery Assembler Name Role Phone Unknown, Provider Primary Care Provider + [phone] Unknown, Provider Primary Care Provider + [phone] Walt Cerda MD Unavailable + [phone] Walt Cerda MD Primary Care Provider [phone] Walt Cerda MD Primary Care Provider [phone] Janet Singleton PA-C Primary Care Provider + [phone] Reagan Stockton MD Unavailable Encounter Details Date Type Department Care Team (Late st Contact Info) Description 05/19/2009 Historical Encounter [facility] HISTORIC Anabel Lee MD Social History Tobacco Use Types Packs/Day Years Used Date Smoking Tobacco: Never Assessed Sex and Gender Information Value Date Recorded Sex Assigned at Male 07/13/2020 8:35 PM EDT Legal Sex Male 9:38 PM EST Gender Identity Male 07/13/2020 8:35 PM EDT Sexual Orientation Straight 07/13/2020 8: 35 PM EDT documented as of this encounter Progress Notes * Anabel Lee - 05/22/2009 12:08 AM EDT [facility] History #: [id number] Patient Name: KRISTYN GONSALES Tape #: [id number] Attending Note PALLAVIFIORNEVAEHLeola Garcia May 19, 2009 ATTENDING NOTE IDENTIFICATION AND PURPOSE OF VISIT: Mr. 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 Mr. Gonsales is a 63-year-old gentleman who was noted to have an elevated PSA initially in 09/29 when it measured 8. It was repeated and measured 5.6. It was elected to monitor this. In 11/28, PSA measured 4.7, but there was some right-sided firmness noted on digital rectal exam suspicious for T2a disease. This prompted a biopsy which was ultimately done in 03/30. A 12-core biopsy was performed and on ultrasound, gland measured to approximately 34 grams. The patient was found to have evidence of [place] 3 4=7 adenocarcinoma in 9 of 12 cores. The slides have been reviewed here at [facility]. There is 40%-50% involvement of most of the cores. There were few cores with [place] 3 3=6 disease. The patient had PSA drawn today and this measured 6.4. The patient currently has an IPSS score of 13 with some chronic urgency and frequency with occasional episodes of being unable to make it to the restroom in time. There has been no recent worsening. The patient has a LYNN of 19 and uses Cialis regularly. The patient has had some chest discomfort and bowel problems since his diagnosis. A workup by his primary care physician this month including an EKG. This was all normal. This has been attributed to anxiety. He denies any constitutional symptoms and has no musculoskeletal complaints or neurologic symptoms. He does have some mild bilateral leg edema and had an ultrasound recently which ruled out DVTs. 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 He has sleep apnea and hypercholesterolemia. Past Surgical History: Laser eye surgery bilaterally. Medications: Cialis as needed. Allergies: None. Family History: Negative for prostate or other known cancers. Social History: The patient is a nonsmoker. He drinks 2 beers per day. 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 NARRATIVE AND FINDINGS: Physical Examination: He is a well- developed, well-nourished male in no acute distress. Performance status is 0. General exam is unremarkable. Digital rectal exam performed by Dr. Haas, was felt to be consistent with T1c disease with some firmness in the right gland, however not sufficient to be considered T2a. The labs are as above. Imaging: None. IMPRESSION AND RECOMMENDATIONS: Mr. Gonsales is a 63-year-old gentleman with a relatively high-volume intermediate-risk, PSA 6.4, [place] 3 4=7 T1c adenocarcinoma of the prostate. His case was discussed at Multidisciplinary Conference today. We felt he was a candidate for either surgical management or definitive radiotherapy with a short course of hormone suppression therapy. The patient met with both Dr. Haas and myself today personally. I spent 45 minutes with the patient of which greater than 50% was in patient education, counseling, and care of coordination. We discussed the rationale, outcomes, logistics, and potential risks associated with the use of the definitive radiotherapy and also discussed the issues related to a short course of androgen suppression. We compared and contrasted the treatments available to him to the best of my ability. We did discuss brachytherapy briefly; however, he is not felt to be a candidate for a brachytherapy alone. We discussed the potential use of a combined therapy, although in general, I would be comfortable proceeding with definitive external beam radiation and hormone suppression. The patient was given the opportunity to ask all of his questions. At this point, he is leaning more towards having surgery. However, he would like to think further about his options. He has contact information for myself and for Dr. Haas, and was encouraged to contact us once he has made a decision. NOTE ELECTRONICALLY SIGNED Anabel Lee M.D. [id number] cc: Referring Physicians Note: This note provides information pertaining only to a specific event. A more detailed medical history is available in the Medical Record. * Antonino Salazar MD PhD - 05/20/2009 12:08 AM EDT Name: Kristyn Gonsales History: [id number] Address: [address] [place] [address] Visit Date: 05/19/2009 [facility] Location: [facility] : 1945 Race: White Gender: Male Primary Provider: Antonino Salazar Other Provider: Document No: [id number] REASON FOR VISIT: New diagnosis of prostate cancer, second opinion. 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 His PSA in 09/29 was 8, six weeks later recheck was 5.6. In 11/28, his PSA was 4.7 and he had an abnormal rectal exam. In 03/30, he had a 12-core prostate biopsy, which demonstrated [place] 3+4=7 adenocarcinoma of the prostate in 9 of 12 cores including [place] 3+3=5 in 50% and 50% of cores from the right mid and Karley 3+4=7 adenocarcinoma of the prostate in 60% of left mid, 35% of left apex and [place] 3+3=6 in 45% and 40% of left base cores. His IPSS score is 13. His LYNN is 19. His past medical history is significant for optic neuropathy after eye surgery, subclinical retinal detachment after laser retinopexy, sleep apnea, and hypercholesterolemia. The patient has a mother who of the stroke at 72. Father who at 86 of unknown causes. No family history of prostate cancer. 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 He has two children, one of them is stationed in [place]. MEDICATIONS: Include Cialis as needed. ALLERGIES: None. MAJOR FINDINGS: On examination, he is in no distress. Extraocular muscles are intact. Cranial nerves are grossly intact. No cervical adenopathy. Abdomen is soft, nondistended, and nontender. He has no masses appreciated. Normal phallus, normal testes, and normal epididymis. He has a normal sphincter tone. He has some asymmetry to his examination with the very potentially subtle finding on the right mid portion of the prostate, clinical stage T1c/T2a. ASSESSMENTS: Assessment and Plan: The patient is a 63-year-old with intermediate grade T1c/T2a adenocarcinoma of the prostate. For this, I spent over an hour discussing with the patient over which 40 minutes were in [id number] consultation time. We discussed both surgical removal of the prostate and treatment with radiotherapy. All around, majority of this was spent discussing surgical removal as the patient was seen in the multidisciplinary clinic. At this point in time, the patient is still uncertain of which if he would like to have radiation surgery, but if he were to have surgery, he is inclined to have robotic approach. He will contact me via E-mail. DICTATED BY: ANTONINO SALAZAR M.D. [id number]/[id number] SIGNED BY: ANTONINO SALAZAR THIS DOCUMENT HAS BEEN ELECTRONICALLY SIGNED. DATE SIGNED: 06/02/2009 Note: This clinic note provides information pertaining only to the patient's most recent visit. A more detailed medical history is available in the Medical Record. documented in this encounter Consult Notes * Anabel Lee - 05/23/2009 12:09 AM EDT [facility] History #: [id number] Patient Name: KRISTYN GONSALES Tape #: [id number] Consult ANABEL LEE A May 19, 2009 CONSULTATION IDENTIFICATION AND PURPOSE OF VISIT: The patient was seen today in Multidisciplinary Prostate Cancer Clinic. Dr. Aleksander Salazar was present from Urology, Dr. Anabel Lee was present from Radiation Oncology, Dr. Chevy Hernandez was present from Medical Oncology, Dr. Luis Alberto Olson was present from Pathology, and Dr. Wilma Baumann was present from Radiology. Mr. Sy is a 63-year-old male with a clinical T1c, PSA 6.4, Karley 3 4=7 (intermediate risk) prostate adenocarcinoma. HISTORY OF PRESENT ILLNESS: Referring Physician: Dr. Reagan Stockton [facility] [place]. In 09/29, Mr. Sy experienced an elevated PSA to 8.0, this was repeated approximately 6 weeks later when his PSA decreased to 5.6, at this point, we are going to consult his physician, he decided to monitor this over the coming months. On 11/29/08, Mr. Gonsales's PSA was 4.7 and upon rectal examination, there was right- sided firmness noted. The patient subsequently was biopsied in 04/18/09, 9/12 cores showed adenocarcinoma with 5 showed [place] 3 4=7 with 4 cores showing Karley 3 3=6. The prostate was measured to be 34 grams by ultrasound. PSA repeated today at [facility] 05/19/09, was 6.4. The patient does admit to a history of chronic urinary urgency and frequency, unable to make it to the restroom in time about 1 time per month. These urinary symptoms have now recently worsened. His IPSS score is 13. The patient is currently sexually active. He takes Cialis on a regular basis, and has had success with this pharmacotherapy for several years now. His sexual health inventory score is 19. MEDICATIONS: Cialis p.r.n. ALLERGIES: No known drug allergies. PAST MEDICAL AND SURGICAL HISTORY: Past Medical History: 1. Optic neuropathy, left eye. 2. Bilateral subclinical retinal detachments status post bilateral laser retinopexy. 3. Sleep apnea. 4. Hypercholesterolemia. Past Surgical History: Bilateral laser retinopexy, right eye treated 6 times, left eye treated once, ongoing. FAMILY HISTORY: Mother age 72, stroke. Father age 86, cause unknown. There is no history of prostate cancer in the family. 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 His job requires that he travel extensively with several flights a year to [place]. The patient has 2 children and is . He lives in [facility]. The patient denies having ever used tobacco products. He admits to an alcohol intake of approximately 2 beers per day. He denies illicit drug use. REVIEW OF SYSTEMS: The patient does complain of a 3-4/10 intermittent nonradiating sternal pain that began approximately 3 weeks ago. This pain does not occur with exertion nor is there any associated shortness of breath or diaphoresis. The patient notices this pain usually while he lying flat on his back in bed at night. This sternal pain was worked up by his primary care physician 05/18/09, with blood drawn and a normal EKG per the patient. The patient denies decreased appetite, weight loss, nausea, vomiting, diarrhea, and constipation. The patient denies blood in the urine or the stool. The patient denies any abdominopelvic, lumbosacral, or bone pain. Denies numbness, tingling, lumps, nodules, rash, or easy bruising. The patient does admit to bilateral leg edema that has worsened over the past few months. He has had ultrasound recently to rule out DVT and thrombophlebitis. The ultrasound was negative per the patient. All other review of systems are negative. PHYSICAL EXAMINATION: General: This is a well-appearing male in no apparent distress. The patient is alert and oriented x3. Speech and cognition are intact and appropriate. He was seen in the exam room alone today. HEENT: Extraocular muscles intact. Pupils equal, round, and reactive to light with accommodation. Oropharynx without lesion. Mucous membranes moist. Neurologic: Cranial nerves II through XII are intact. Lymphatics: There is no auricular, submandibular, superficial or deep cervical, supra or infraclavicular lymphadenopathy. There is no axillary or inguinal lymphadenopathy. Heart: Regular rate and rhythm. No murmurs, rubs, or gallops. Respiratory: Clear to auscultation bilaterally. No wheezes or rhonchi. Abdomen: Nontender and nondistended. No evidence of organomegaly or mass. Musculoskeletal: Strength 5/5 in all 4 extremities. No bony abnormalities palpated in the axial spine. Palpation at costosternal junction at rib yield some mild tenderness. Extremities: 2 pitting edema right lower extremity, 1 pitting edema left lower extremity. Tortuous superficial venous tributaries noted in the right medial lower extremity. Rectal: Normal rectal tone and anal skin. Approximate 30 gram prostate, asymmetric firmness noted in the right mid section, however, without distinct nodule, sulci intact bilaterally. IMAGING DATA AND DIAGNOSTIC STUDIES: Pathology from 12-core biopsy performed 04/18/09. A. Right apex, benign prostatic tissue. B. Right mid, adenocarcinoma, Karley 3 4=7, 50%. C. Right base, small focus of adenocarcinoma, [place] 3 3=6, separate high-grade prostatic intraepithelial neoplasia. D. Right lateral apex, benign prostatic tissue. E. Bilateral mid, adenocarcinoma of the prostate, Karley 3 4=7, 50%. F. Right lateral base, high-grade prostatic intraepithelial neoplasia. G. Left apex, small focus of adenocarcinoma, [place] 3 3=6. separate high-grade prostatic intraepithelial neoplasia. H. Left mid small focus of adenocarcinoma 3 3=6, adjacent high- grade prostatic intraepithelial neoplasia. 1. Left base, adenocarcinoma of the prostate, [place] 3 4=7, 50%. 2. Left lateral apex, adenocarcinoma of the prostate, [place] 3 3=6, 50%. 3. Left lateral mid, adenocarcinoma of the prostate, Karley 3 4=7, 60%. 4. Left lateral base, adenocarcinoma of the prostate, [place] 3 4=7, 40%. Imaging: None. LABORATORY DATA: On 11/29/08, PSA 4.7, 05/19/09, PSA is 6.4. IMPRESSION AND PLAN: This is a otherwise, healthy 63-year-old male with a clinical T1c, PSA 6.4, Karley 3 4=7 (intermediate risk) prostate adenocarcinoma. Plan: Mr. Gonsales's case was presented today at Prostate Multidisciplinary Clinic with the consensus that the patient's 2 therapeutic options given his PSA of 6.4, Karley of 3 4=7, physical exam findings, and number of involved cores on biopsy were one surgery or two combined neoadjuvant or concurrent androgen deprivation therapy with external beam radiation. Risks and benefits of these 2 therapeutic options were weighed with the patient in the examination room today. Risks pertaining to external beam radiation therapy discussed included decreased sexual function, urinary or rectal urgency, development of urethral stricture, and possibility of painless rectal bleeding. Risks of hormone therapy were additionally discussed to include decreased libido, decreased muscle mass, increased adiposity. All questions were answered in the examination room by Dr. Lee. The patient was also seen by Dr. Salazar to discuss risks and benefits from a surgical perceptive. The patient was given our contact information, and has been encouraged call us if he has any further questions or to schedule therapy. This patient was seen and examined by Dr. Lee. Please see her seperately dictated note. NOTE ELECTRONICALLY SIGNED Anabel Lee M.D. MDQ05/20/2009 Note: This note provides information pertaining only to a specific event. A more detailed medical history is available in the Medical Record. documented in this encounter Plan of Treatment Not on file documented as of this encounter Procedures Procedure Name Priority Date/Time Associated Diagnosis Comments SURGICAL PATHOLOGY REPORT Routine 05/08/2009 8:57 AM EDT documented in this encounter Results * SURGICAL PATHOLOGY REPORT (05/08/2009 8:57 AM EDT) Surg Path Report [facility] Patient: KRISTYN GONSALES Path# [id number] [facility] MR # [id number] Accessioned 05/08/2009 Surgical Pathology Birthdate: 1945 (Age 63) Loc: OUTSIDE Consult Service [address] [place] [address] Gender: M Spec. Taken 04/18/2009 Md Malinda. [id number] [facility] Physician: YURY HOGUE M.D. INTERPRETATION AND DIAGNOSIS: (pbi) 05/09/2009 @ 05:50 pm OUTSIDE SLIDES: PROSTATE (BX., [id number], 04/18/09): A. RIGHT APEX: BENIGN PROSTATIC TISSUE. B. RIGHT MID: ADENOCARCINOMA OF THE PROSTATE, KARLEY GRADE 3+4=7 INVOLVING A SINGLE CORE (50%). C. RIGHT BASE: SMALL FOCUS OF ADENOCARCINOMA OF THE PROSTATE, KARLEY GRADE 3+3=6 INVOLVING SINGLE CORE. SEPARATE HIGH GRADE PROSTATIC INTRAEPITHELIAL NEOPLASIA. D. RIGHT LATERAL APEX: BENIGN PROSTATIC TISSUE. E. RIGHT LATERAL MID: ADENOCARCINOMA OF THE PROSTATE, KARLEY GRADE 3+4=7 DISCONTINUOUSLY INVOLVING A SINGLE CORE (50%). F. RIGHT LATERAL BASE: HIGH GRADE PROSTATIC INTRAEPITHELIAL NEOPLASIA. G. LEFT APEX: SMALL FOCUS OF ADENOCARCINOMA OF THE PROSTATE, KARLEY GRADE 3+3=6 INVOLVING ONE (1) OF TWO (2) CORES. SEPARATE HIGH GRADE PROSTATIC INTRAEPITHELIAL NEOPLASIA. H. LEFT MID: SMALL FOCUS OF ADENOCARCINOMA OF THE PROSTATE, KARLEY GRADE 3+3=6 INVOLVING A SINGLE CORE. ADJACENT HIGH GRADE PROSTATIC INTRAEPITHELIAL NEOPLASIA. I. LEFT BASE: ADENOCARCINOMA OF THE PROSTATE, KARLEY GRADE 3+4=7 INVOLVING A SINGLE CORE (50%). J. LEFT LATERAL APEX: ADENOCARCINOMA OF THE PROSTATE, KARLEY GRADE 3+3=6 INVOLVING A SINGLE CORE (50%). K. LEFT LATERAL MID: ADENOCARCINOMA OF THE PROSTATE, KARLEY GRADE 3+4=7 DISCONTINUOUSLY INVOLVING ONE (1) BISECTED CORE (60%). L. LEFT LATERAL BASE: ADENOCARCINOMA OF THE PROSTATE, KARLEY GRADE 3+4=7 INVOLVING A SINGLE CORE (40%). NOTE: This case was shown at the daily departmental quality control expert conference. FOR PATIENTS: FREQUENTLY ASKED QUESTIONS (FAQS) ABOUT YOUR PATHOLOGY REPORT GO TO: [email or web address]. [facility] 1) MOVE YOUR CURSOR OVER THE TAB PATIENTS AND CLICK ON THE TAB PATIENT CARE; 2) CLICK ON THE TAB PROSTATE CANCER ON NEEDLE BIOPSY HALEIGH SEAMAN M.D. PBI* *Electronic signature (05/09/2009 @ 05:50 pm) by which I attest that the above diagnosis is based upon my personal examination of the slides (and / or other material indicated in the diagnosis), and that I have reviewed and approved this report. GROSS DESCRIPTION PART #1: PROSTATE (dla) Resident Pathologist: ADAMS EUBANKS M.D. 05/08/2009 Received 12 slides [id number] ([id number]), [facility], [place], [place]. (End of Report) printed 09/29/2018 16:27 Reported by: [facility] Surgical [place] [id number] Final Report Signed on 05/09/2009 at 05:50 pm PDS Other 05/08/2009 8:57 AM EDT 04/18/2009 12:00 AM EDT us Ruben Hogue MD PATHOLOGY ORDERABLES Edited Res ult - Final PDS documented in this encounter Visit Diagnoses Not on filedocumented in this encounter Care Teams Plastic Battery Assembler Relationship Specialty Start Date End Date Unknown, Provider PROVIDER UNKNOWN PCP - General 03/25/13 10/24/19 Unknown, Provider PROVIDER UNKNOWN PCP - General 10/25/19 12/23/19 Walt Cerda MD [address] [place] [address] [place] [id number] PCP - General Family Medicine 12/24/19 12/24/19 Walt Cerda MD [address] [place] [address] [place] [address] PCP - General Family Medicine 03/23/20 11/01/24 Janet Singleton PA-C [address] [place] [address] [place] [address] PCP - General Station Baggage Agent 11/02/24 Reagan Stockton MD [address] [place] [address] [address] [place], [place] PCP - Specialty Referring 1 Urology 11/17/24 Walt Cerda MD [address] [address] [place] [address] Family Medicine 11/20/19 documented as of this encounter
--- OUTSIDE RECORDS SUMMARY | 2025-03-10 16:14 | XMS_ITS | Clinical Summary ---
Author Organization [facility] Address [address] [place] [address] Phone Care Team Providers Care Wire Products Inspector Name Role Phone Bello Monique M.D., M.D. Primary Care Provider Unavailable Source Comments NOTE: The information displayed by Care Everywhere is extracted from the complete medical record and may not identify all current or past patient conditions.[facility] Allergies No known active allergies Medications Atorvastatin (LIPITOR) 20 mg Oral Tab Take 1 tablet by mouth daily for cholesterol 90 tablet 1 8 Active Active Problems Problem Noted Date Diagnosed Date OBSTRUCTIVE SLEEP APNEA 10/22/2016 Overview (12/24/2017): Mild---no treatment due to side effect No c pap machine RIGHT RETINAL DETACHMENT W SINGLE DEFECT 017 Overview (04/17/2017): 2012 Outside retinal specialist HX OF CATARACT EXTRACTION 09/28/2016 SNORING 09/28/2016 Overview (09/28/2016): Mild sleep apnea ORTHOSTATIC HYPOTENSION 09/28/2016 HX OF PROSTATE CANCER 09/27/2016 Overview (09/28/2016): prostectomy 2009 MIGRAINE 09/27/2016 Overview (09/28/2016): Once a month Mri brain--normal Immunizations Immunization Administration Dates Next Due PCV13 ([id number]) (Pneumococcal conjugate, 13 va lent) 03/28/2016 PPSV23 (Pneumococcal polysaccharide) 07/15/2018 Tdap (Tetanus, diphtheria, acellular pertussis) 09/28/2012 ZOS (Zostervirus live, shingles) 09/28/2012 Family History Medical History Relation Name Comments Hypertension Mother Stroke Mother Relation Name Status Comments Mother Social History Tobacco Use Types Packs/Day Years Used Date Smoking Tobacco: Never Smokeless Tobacco: Never Sex and Gender Information Value Date Recorded Sex Assigned at Not on file Legal Sex Male 6:38 PM EST Gender Identity Not on file Sexual Orientation Not on file 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 Not on file Not on file N ot on file Last Filed Vital Signs Vital Sign Reading Time Taken Comments Blood Pressure 102/53 07/15/2018 10:40 AM EDT Pulse 49 07/15/2018 10:40 AM EDT Temperature 36.3 C (97.4 F) 07/15/2018 10:40 AM EDT Respiratory Rate 20 07/15/2018 10:40 AM EDT Oxygen Saturation 99% 07/15/2018 10:40 AM EDT Inhaled Oxygen Concentration - - Weight 70.8 kg (156 lb) 07/15/2018 10:40 AM EDT Height 182.9 cm (6') 07/15/2018 10:40 AM EDT Body Mass Index 21.16 07/15/2018 10:40 AM EDT Plan of Treatment Not on file Care Teams Wire Products Inspector Relationship Specialty Start Date End Date Bello Monique M.D., M.D. PCP - General 09/24/16
[2025-03-10 16:32] LABS: Basophils Absolute Auto 0.1 K/mm3 (0.0-0.1); Basophils Percent Auto 0.7 % (0.2-1.2); Eosinophils Absolute Auto 0.3 K/mm3 (0-0.3); Eosinophils Percent Auto 4.4 % (0-4.4); Hematocrit 40.3 % (42.0-52.0); Immature Granulocyte Absolute 0.03 K/mm3 (0.00-0.031); Immature Granulocyte Percent A 0.4 % (0-0.5); Lymphocytes Absolute Auto 1.58 K/mm3 (0.9-3.2); Lymphocytes Percent Auto 21.9 % (18.3-44.2); Mean Corpuscular HGB Conc 34.7 g/dl (32-36); Mean Corpuscular Hemoglobin 32.3 pg (26-34); Mean Corpuscular Volume 92.9 fl (80-100); Mean Platelet Volume 11.1 fl (7.4-10.4); Monocytes Absolute Auto 0.4 K/mm3 (0.1-0.6); Monocytes Percent Auto 4.8 % (2.6-8.5); Neutrophils Absolute Auto 4.9 K/mm3 (1.3-6.7); Neutrophils Percent Auto 67.8 % (45.5-73.1); Platelet Count Result 206 k/mm3 (150-375); Red Blood Count 4.34 M/mm3 (4.6-6.20); Red Cell Distribution Width 12.7 % (11.5-14.5); White Blood Count 7.2 K/mm3 (4.5-10.0)
[2025-03-10 16:43] LABS: INR 1.1; Prothrombin Time 14.5 Seconds (11.1-14.7)
[2025-03-10 16:44] LABS: Alanine Aminotransferase 23 U/L (6-50); Albumin Level 4.4 g/dL (3.5-5.1); Alkaline Phosphatase 80 U/L (38-126); Anion Gap 8 mmol/L (4-12); Aspartate Amino Transferase 26 U/L (17-59); Bilirubin,Total 1.1 mg/dL (0.2-1.3); Blood Urea Nitrogen 16 mg/dL (9-20); Calcium 9.1 mg/dL (8.4-10.2); Carbon Dioxide 26 mmol/L (22-30); Chloride 103 mmol/L (98-107); Estimated CRCL calculation 62 ml/min; Estimated Glomerular Filt Rate > 60; Glucose 86 mg/dL (65-110); Lipase 72 U/L (23-300); Partial Thromboplastin Time 28.5 Seconds (22.3-36.8); Potassium 4.1 mmol/L (3.4-5.0); Sodium 137 mmol/L (137-145); Total Protein 7.5 g/dL (6.3-8.2)
[2025-03-10 16:55] LABS: Troponin I < 0.012 ng/mL (0.000-0.034)
[2025-03-10 17:02] VITALS: O2SAT 97
--- NOTE | 2025-03-10 17:03 | PC.NURSE ---
Patient denies any CP at this time
--- NOTE | 2025-03-10 17:34 | ED.CHESTPAIN ---
HPI - Chest Pain General Chief Complaint: Chest Pain Stated Complaint: chest pain, now subsided Time Seen by Provider: 03/10/25 17:04 History of Present Illness HPI narrative: 79 y/o M with a hx of HLD and bradycardia presents to the ED for chest pain intermittently for 2 days. Pt went to [facility] care prior to arrival and was transferred via EMS for further evaluation. Patient states the pain intermittently occurs in the left side of his anterior chest when he takes a deep breath. He describes the pain as sharp. States it usually lasts no more than 30 minutes at a time, however it seemed to more frequent today which prompted him to be evaluated. He denies radiating symptoms or exertional symptoms. He denies cough, congestion, hemoptysis, shortness of breath, fever, abdominal pain. He has chronic bilateral lower extremity edema which is unchanged from baseline. Denies history of CHF, renal disease or liver disease. He denies prior cardiac history or vascular disease. Denies family history of cardiac disease but states his mother had a stroke in her 50s. He does note that he has chronic bradycardia with his heart rate normally in the 40s to 50s bpm. He follows with his PCP for this and is currently being worked up outpatient. He denies any dizziness or lightheadedness. The patient is traveling from [facility] to visit family and is scheduled to go back Friday. Denies history of VTE. Patient states he is not currently having any pain or symptoms. Related Data Home Medications ?Medication ?Instructions ?Recorded ?Confirmed ?Last Taken ?Type atorvastatin 10 mg tablet mg 03/10/25 Unknown History brimonidine 0.2 %-timolol 0.5 % drp 03/10/25 Unknown History eye drops (Combigan) Allergies Allergy/AdvReac Type Severity Reaction Status Date / Time No Known Allergies Allergy Verified 03/10/25 15:36 Review of Systems Review of Systems: All systems reviewed & are unremarkable except as noted in HPI and below Exam Narrative: GENERAL: Well-appearing, well-nourished, and in no acute distress. HEAD: Normocephalic, atraumatic. EYES: EOMI. ENT: Nares clear, no rhinorrhea or epistaxis. Mucous membranes moist. NECK: Supple. CHEST: Clear to auscultation. No respiratory distress. HEART: Regular rate and rhythm. No murmur heard. Normal peripheral pulses. ABDOMEN: Soft, nontender, nondistended, normal active bowel sounds. EXTREMITIES: Normal range of motion. Mild bilateral lower extremity edema with no overlying warmth erythema, reportedly unchanged from baseline. Extremities are pink, warm and dry SKIN: Warm, dry, no rash. NEURO: No focal deficits. Alert and oriented x3 Course Vital Signs Vital signs: Vital Signs Temperature 97.7 F 03/10/25 16:13 Pulse Rate 61 03/10/25 16:13 Respiratory Rate 16 03/10/25 16:13 Blood Pressure 148/77 H 03/10/25 16:13 Pulse Oximetry 100 03/10/25 16:13 Oxygen Delivery Room Air 03/10/25 16:13 Temperature 97.7 F 03/10/25 16:13 Pulse Rate 60 03/10/25 18:16 Respiratory Rate 16 03/10/25 18:16 Blood Pressure 128/94 H 03/10/25 18:16 Pulse Oximetry 98 03/10/25 18:16 Oxygen Delivery Room Air 03/10/25 17:02 MDM - Chest Pain MDM Narrative Medical decision making narrative: 79-year-old male with history of hyperlipidemia bradycardia presents to the ED for intermittent left-sided pleuritic chest pain for the past 2 days. See HPI for further history. Triage vitals are stable. Patient is afebrile and nontoxic appearing resting comfortably in exam bed. He is asymptomatic at the time of my evaluation. EKG shows sinus rhythm with sinus arrhythmia, borderline MS interval at 201, normal QRS duration, normal QTC, no ST elevations or depressions. Troponin is undetectable x2. D-dimer <0.27. BNP within normal limits when age adjusted. CBC without leukocytosis or anemia. Chemistries are unremarkable. Chest x-ray shows no acute cardiopulmonary abnormality. Patient and family at bedside are updated on results. Given presentation, suspect pleurisy verses costochondritis versus MSK etiology. Heart score is 3. Will trial a short course of naproxen. Also advised to continue f/u with PCP regarding chronic bradycardia and recommended follow-up with bacteriologist pharmaceutical when he returns back to [facility] in 2 days. Discussed strict ED return precautions. He is agreeable with the plan verbalized understanding. Discharged in stable condition. Lab Data 03/10/25 16:26 03/10/25 16:26 Labs: Lab Results 03/10/25 03/10/25 Range/Units 16:26 19:37 WBC 7.2 (4.5-10.0) K/mm3 RBC 4.34 L (4.6-6.20) M/mm3 Hgb 14.0 (14.0-18.0) g/dL Hct 40.3 L (42.0-52.0) % MCV 92.9 (80-100) fl MCH 32.3 (26-34) pg MCHC 34.7 (32-36) g/dl RDW 12.7 (11.5-14.5) % Plt Count 206 (150-375) k/mm3 MPV 11.1 H (7.4-10.4) fl Immature Gran % (Auto) 0.4 (0-0.5) % Neut % (Auto) 67.8 (45.5-73.1) % Lymph % (Auto) 21.9 (18.3-44.2) % [place] % (Auto) 4.8 (2.6-8.5) % Eos % (Auto) 4.4 (0-4.4) % Baso % (Auto) 0.7 (0.2-1.2) % Lymph # (Auto) 1.58 (0.9-3.2) K/mm3 [place] # (Auto) 0.4 (0.1-0.6) K/mm3 Eos # (Auto) 0.3 (0-0.3) K/mm3 Baso # (Auto) 0.1 (0.0-0.1) K/mm3 Abs Immat Gran (auto) 0.03 (0.00-0.031) K/mm3 Absolute Neuts (auto) 4.9 (1.3-6.7) K/mm3 Absolute Nucleated RBC 0.000 (0.0-0.012) K/mm3 Nucleated RBC % 0.0 (0.0-0.2) % PT 14.5 (11.1-14.7) Seconds INR 1.1 APTT 28.5 (22.3-36.8) Seconds D-Dimer < 0.27 (<0.48) ug/mL Sodium 137 (137-145) mmol/L Potassium 4.1 (3.4-5.0) mmol/L Chloride 103 (98-107) mmol/L Carbon Dioxide 26 (22-30) mmol/L Anion Gap 8 (4-12) mmol/L BUN 16 (9-20) mg/dL Creatinine 0.85 (0.7-1.3) mg/dL Estim Creat Clear Calc 62 ml/min Estimated GFR > 60 (59 - ) Glucose 86 (65-110) mg/dL Calcium 9.1 (8.4-10.2) mg/dL Total Bilirubin 1.1 (0.2-1.3) mg/dL AST 26 (17-59) U/L ALT 23 (6-50) U/L Alkaline Phosphatase 80 (38-126) U/L Troponin I < 0.012 < 0.012 (0.000-0.034) ng/mL NT-Pro-B Natriuret Pep 191 H (19.9-100) pg/mL Total Protein 7.5 (6.3-8.2) g/dL Albumin 4.4 (3.5-5.1) g/dL Lipase 72 (23-300) U/L Discharge Plan Discharge Clinical Impression: Atypical chest pain, Chronic sinus bradycardia Patient Disposition: Home Condition: Stable Instructions: Antibiotic Form, Chest Pain (DC), Bradycardia (ED) Additional Instructions: You were evaluated in the emergency department for chest pain. Your workup here is reassuring. You did have a lower heart rate which she reports is chronic. Please continue to follow-up with her primary care provider regarding this. He may need referral to Cardiology when he returns back to [facility]. Please take the naproxen as needed as directed for pain. Return to the emergency department if you develop new or changing chest pain, shortness of breath, coughing up blood, fever, or other concerning symptoms. Patient Language: Kiswahili Prescriptions: New naproxen 500 mg tablet 500 mg PO BID PRN (Reason: pain) Qty: 14 0RF No Action atorvastatin 10 mg tablet brimonidine-timolol [Combigan] 0.2-0.5 % drops Follow-up/Referrals: PHYSICIAN,GENERAL OFFICE WORKER [Primary Care Provider] - Quality HEART score for chest pain patients History: slightly suspicious ECG: normal Age: > or = to 65 years Risk factors: 1 or 2 risk factors Troponin: < or = to 1x normal limit Heart score: 3
[2025-03-10] MEDS: ASPIRIN 81 MG CHEWABLE TABLET 324 MG PO (17:54)
[2025-03-10 18:16] VITALS: BP 128/94; PULSE 60; RESP 16; O2SAT 98
[2025-03-10 18:16] LABS: D Dimer < 0.27 ug/mL (<0.48)
[2025-03-10 18:23] LABS: NT Pro B Type Natriuretic Pept 191 pg/mL (19.9-100)
--- OUTSIDE RECORDS SUMMARY | 2025-03-10 18:53 | XMS_ITS | Encounter Summary ---
Author Organization [facility] Address [address] [place] [address] Care Team Providers Care Merchandising Stock Associate Name Role Phone Walt Cerda MD Unavailable [phone] Walt Cerda MD Primary Care Provider [phone] Janet Singleton PA-C Primary Care Provider + [phone] Reagan [place] MD Unavailable Encounter Details Date Type Department Care Team (Late st Contact Info) Description 11/12/2020 Orders Only [facility] COVID VACCINE SITE [address] [place] [address] Building A, Floor 1, Conference Room 3 [place] [address] Samira Cedeño MD ROLANDO [address] [facility] Level [place], [place] Need for vaccination Social History Tobacco [...] disease documented in this encounter Care Teams Merchandising Stock Associate Relationship Specialty Start Date End Date Walt Cerda MD [address] [address] [place] [address] PCP - General Family Medicine 03/23/20 11/01/24 Janet Singleton PA-C [address] [place] [address] [place] [address] PCP - General Glass Inserter 11/02/24 Reagan [place] MD [address] [place] [address] PCP - Specialty Referring 1 Urology 11/17/24 Walt Cerda MD [address] [address] [place] [address] Family Medicine 11/20/19 documented as of this encounter
--- OUTSIDE RECORDS SUMMARY | 2025-03-10 18:53 | XMS_ITS | Encounter Summary ---
Author Organization [facility] Address [address] [place] [address] Care Team Providers Care Entry Specialist Name Role Phone Unknown, Provider Primary Care Provider + [phone] Unknown, Provider Primary Care Provider + [phone] Walt Cerda MD Unavailable + [phone] Walt Cerda MD Primary Care Provider [phone] Walt Cerda MD Primary Care Provider [phone] Janet Singleton PA-C Primary Care Provider + [phone] Reagan [place] MD Unavailable Encounter Details Date Type Department Care Team (Late st Contact Info) Description 11/21/2007 Historical Encounter [facility] HISTORIC Provider, Historical Social History Tobacco [...] EST Name: Peter Gonsales History: [id number] Address: [address] [place] [address] Visit Date: 11/21/2007 [facility] : 1945 Location: 1003 Race: White Document No: [id number] Gender: Male Primary Provider: Houston Cole Other [...] occurred. DICTATED BY: HOUSTON COLE MD PHD [id number] SIGNED BY: Heydi COLE THIS DOCUMENT HAS BEEN ELECTRONICALLY SIGNED. DATE SIGNED: 11/23/2007 Note: This note provides information pertaining only to a specific event. A more detailed medical history is available in the Medical Record. documented in this encounter Plan of Treatment Not on file documented as of this encounter Visit Diagnoses Not on filedocumented in this encounter Care Teams Entry Specialist Relationship Specialty Start Date End Date Unknown, Provider PROVIDER UNKNOWN PCP - General 03/25/13 10/24/19 Unknown, Provider PROVIDER UNKNOWN PCP - General 10/25/19 12/23/19 Walt Cerda MD [address] [address] [place] [address] PCP - General Family Medicine 12/24/19 12/24/19 Walt Cerda MD [address] [address] [place] [address] PCP - General Family Medicine 03/23/20 11/01/24 Janet Singleton PA-C [address] [address] [place] [address] PCP - General Security Flex Utility Officer 11/02/24 Reagan [place] MD [address] [place] [address] PCP - Specialty Referring 1 Urology 11/17/24 Walt Cerda MD [address] [address] [place] [address] Family Medicine 11/20/19 documented as of this encounter
--- OUTSIDE RECORDS SUMMARY | 2025-03-10 18:53 | XMS_ITS | Clinical Summary ---
Author Organization [employer] [facility] Address [address] [place] [address] Phone Care Team Providers Care Wireworker Supervisor Name Role Phone Walt Cerda MD Primary Care Provider [phone] Allergies No known active allergies Medications brimonidine-bk [...] Plan of Treatment Not on file Insurance [facility] MEDICARE SUPP [id number] MEDICARE PART A AND B [facility] MEDICARE SUPP [id number] MEDICARE PART A AND B [facility] MEDICARE SUPP [id number] MEDICARE PART A AND B [facility] MEDICARE SUPP [id number] MEDICARE PART A AND B Care Teams Wireworker Supervisor Relationship Specialty Start Date End Date Walt Cerda MD [address] [address] [place] [address] PCP - General Geriatric Medicine 08/18/20
--- OUTSIDE RECORDS SUMMARY | 2025-03-10 18:53 | XMS_ITS | Referral Summary ---
Author Organization [facility] Address [address] [place] [address] Phone Care Team Providers Care Banquet Kitchen Supervisor Name Role Phone KrisMing Radha Primary Care Provider [phone] Social History Tobacco Use Types Packs/Day Years [...] MEDICARE PART A AND B Care Teams Banquet Kitchen Supervisor Relationship Specialty Start Date End Date Ming Ponce [address] [facility] [address] [place] [address] PCP - General 05/08/15
--- OUTSIDE RECORDS SUMMARY | 2025-03-10 18:53 | XMS_ITS | Encounter Summary ---
Author Organization [facility] Address [address] [place] [address] Phone Care Team Providers Care Painter Railroad Car Name Role Phone Walt Cerda MD Primary Care Provider [phone] Encounter Details Date Type Department Care Team (Late st Contact Info) Description 08/18/2020 Procedure Pass [facility] Main Perioperative [address] [place], [place] [id number] Social History Tobacco Use Types Packs/Day Years [...] on filedocumented in this encounter Care Teams Painter Railroad Car Relationship Specialty Start Date End Date Walt Cerda MD [address] [facility] [address] [place] [address] PCP - General Geriatric Medicine 08/18/20 documented as of this encounter
--- OUTSIDE RECORDS SUMMARY | 2025-03-10 18:53 | XMS_ITS | Encounter Summary ---
Author Organization [facility] Address [address] [place] [address] Care Team Providers Care Steel Fabricating Supervisor Name Role Phone Walt Cerda MD Unavailable [phone] Walt Cerda MD Primary Care Provider [phone] Janet Singleton PA-C Primary Care Provider + [phone] Reagan [place] MD Unavailable Encounter Details Date Type Department Care Team (Late st Contact Info) Description 10/10/2020 Orders Only [facility] COVID VACCINE SITE [address] [place] [address] Building A, Floor 1, Conference Room 3 [place] [address] Samira Cedeño MD ROLANDO [address] [facility] Level [address] [place], [place] Need for vaccination Social History Tobacco [...] disease documented in this encounter Care Teams Steel Fabricating Supervisor Relationship Specialty Start Date End Date Walt Cerda MD [address] [address] [place] [address] PCP - General Family Medicine 03/23/20 11/01/24 Janet Singleton PA-C [address] [place] [address] [place] [address] PCP - General Potato Chip Frier 11/02/24 Reagan [place] MD [address] [place] [address] PCP - Specialty Referring 1 Urology 11/17/24 Walt Cerda MD [address] [place] [address] [place] [address] Family Medicine 11/20/19 documented as of this encounter
--- OUTSIDE RECORDS SUMMARY | 2025-03-10 18:53 | XMS_ITS | Clinical Summary ---
Author Organization [facility] Address [address] [place], [place] Phone Care Team Providers Care Sticker Hand Name Role Phone Kris Ming Garcia Primary Care Provider [phone] Social History Tobacco Use Types Packs/Day Years [...] MEDICARE PART A AND B Care Teams Sticker Hand Relationship Specialty Start Date End Date Ming Ponce [address] [facility] [address] [place] [phone] PCP - General 05/08/15
--- OUTSIDE RECORDS SUMMARY | 2025-03-10 18:54 | XMS_ITS | Clinical Summary ---
Author Organization [facility] Address [address] [place] [address] Phone Care Team Providers Care Cns Name Role Phone Bello Monique M.D., M.D. Primary Care Provider Unavailable Source Comments NOTE: The information displayed by Care Everywhere is extracted from the complete medical record and may not identify all current or past patient conditions.[facility] Allergies No known active allergies Medications [...] Immunizations Immunization Administration Dates Next Due PCV13 ([id number]) (Pneumococcal conjugate, 13 va lent) 03/28/2016 PPSV23 [...] of Treatment Not on file Care Teams Cns Relationship Specialty Start Date End Date Bello Monique M.D., M.D. PCP - General 09/24/16
--- OUTSIDE RECORDS SUMMARY | 2025-03-10 18:54 | XMS_ITS | Clinical Summary ---
Author Organization [facility] Address [address] [place] [address] Care Team Providers Care Blocker And Cutter Contact Lens Name Role Phone Walt Cerda MD Unavailable [phone] Janet Singleton PA-C Primary Care Provider [phone] Reagan [place] MD Unavailable Allergies No known [...] Department Care Team Description 12/27/2024 Results Follow-Up [facility] [address] [facility] [address] [place] [address] Janet Singleton PA-C from Last [...] GENERAL LAB - ROUTINE Final R esult [id number] [place] [address] from Last 3 Months or Most Recently Relevant to Health Maintenance Insurance MEDICARE A AND B Member Subscriber Plan / Payer (Ef fective 2011-Present) Name:Kristyn Archibald Member ID:[id number] Relation to Subscriber:Self Name:KRISTYN ARCHIBALD Subscriber ID:[id number] Payer ID:[id number] Group ID:Not on file Type:Medicare Address: [employer] (ATTN: PART A) [address] [place] [address] [facility] MEDICARE SUPPLEMENT PLANS MEDICARE A AND B Member Subscriber Plan / Payer (Ef fective 2011-Present) Name:Kristyn Archibald Member ID:[id number] Relation to Subscriber:Self Name:KRISTYN ARCHIBALD Subscriber ID:[id number] Payer ID:[id number] Group ID:Not on file Type:Medicare Address: [employer] (ATTN: PART A) [address] [place] [phone] [facility] MEDICARE SUPPLEMENT PLANS MEDICARE A AND B Member Subscriber Plan / Payer (Ef fective 2011-) Name:Kristyn Archibald Member ID:[id number] Relation to Subscriber:Self Name:KRISTYN ARCHIBALD Subscriber ID:[id number] Payer ID:[id number] Group ID:Not on file Type:Medicare Address: [employer] (ATTN: PART A) [address] [place] [phone] [facility] MEDICARE SUPPLEMENT PLANS MEDICARE A AND B Member Subscriber Plan / Payer (Ef fective 2011-) Name:Kristyn Archibald Member ID:[id number] Relation to Subscriber:Self Name:KRISTYN ARCHIBALD Subscriber ID:[id number] Payer ID:[id number] Group ID:Not on file Type:Medicare Address: [employer] (ATTN: PART A) [address] [place] [address] [facility] MEDICARE SUPPLEMENT PLANS MEDICARE A AND B Member Subscriber Plan / Payer (Ef fective 2011-) Name:Kristyn Archibald Member ID:[id number] Relation to Subscriber:Self Name:KRISTYN ARCHIBALD Subscriber ID:[id number] Payer ID:[id number] Group ID:Not on file Type:Medicare Address: [employer] (ATTN: PART A) [address] [place] [address] [facility] MEDICARE SUPPLEMENT PLANS SELF PAY PENDING AUTO [...] Status: CPR - Full Code Care Teams Blocker And Cutter Contact Lens Relationship Specialty Start Date End Date Janet Singleton PA-C [address] [address] [place] [address] PCP - General Mobile Paramedical Examiner 11/02/24 Reagan [place] MD [address] [place] [address] [address] [place] [address] PCP - Specialty Referring 1 Urology 11/17/24 Walt Cerda MD [address] [address] [place] [address] Family Medicine 11/20/19
--- OUTSIDE RECORDS SUMMARY | 2025-03-10 18:54 | XMS_ITS | Encounter Summary ---
Author Organization [facility] Address [address] [place] [address] Care Team Providers Care Primary Therapist Name Role Phone Unknown, Provider Primary Care Provider + [phone] Unknown, Provider Primary Care Provider + [phone] Walt Cerda MD Unavailable + [phone] Walt Cerda MD Primary Care Provider [phone] Walt Cerda MD Primary Care Provider [phone] Janet Singleton PA-C Primary Care Provider + [phone] Reagan [place] MD Unavailable Encounter Details Date Type Department Care Team (Late st Contact Info) Description 06/12/2010 Historical Encounter [facility] HISTORIC Provider, Historical Social History Tobacco Use [...] EDT Name: Peter Gonsales History: [id number] Address: [address] [place] [address] Visit Date: 06/12/2010 [facility] : 1945 Location: [facility] Race: White Document No: [id number] Gender: Male Primary Provider: Janeth Lux Other [...] REFERRING PHYSICIAN CC LIST: Ming Ponce MD [address] [place] [address] [address] [place] [phone] DICTATED BY: JANETH LUX M.D. [id number] SIGNED BY: JANETH LUX DATE AND TIME SIGNED: 07/09/2010 09:07 AM Note: This note provides information pertaining only to a specific event. A more detailed medical history is available in the Medical Record. documented in this encounter Plan of Treatment Not on file documented as of this encounter Visit Diagnoses Not on filedocumented in this encounter Care Teams Primary Therapist Relationship Specialty Start Date End Date Unknown, Provider PROVIDER UNKNOWN PCP - General 03/25/13 10/24/19 Unknown, Provider PROVIDER UNKNOWN PCP - General 10/25/19 12/23/19 Walt Cerda MD [address] [place] [address] [place] [address] PCP - General Family Medicine 12/24/19 12/24/19 Walt Cerda MD [address] [place] [address] [place] [address] PCP - General Family Medicine 03/23/20 11/01/24 Janet Singleton PA-C [address] [place] [address] [place] [address] PCP - General Director Of Research 11/02/24 Reagan [place] MD [address] [place] [address] PCP - Specialty Referring 1 Urology 11/17/24 Walt Cerda MD [address] [place] [address] [place] [address] Family Medicine 11/20/19 documented as of this encounter
--- OUTSIDE RECORDS SUMMARY | 2025-03-10 18:54 | XMS_ITS | Encounter Summary ---
Author Organization [facility] Address [address] [place] [address] Care Team Providers Care Rn Medication Name Role Phone Unknown, Provider Primary Care Provider + [phone] Unknown, Provider Primary Care Provider + [phone] Walt Cerda MD Unavailable + [phone] Walt Cerda MD Primary Care Provider [phone] Walt Cerda MD Primary Care Provider [phone] Janet Singleton PA-C Primary Care Provider + [phone] Reagan [place] MD Unavailable Encounter Details Date Type Department Care Team (Late st Contact Info) Description 01/25/2010 Historical Encounter [facility] HISTORIC Provider, Historical Social History Tobacco Use [...] EDT Name: Peter Gonsales History: [id number] Address: [address] [place] [address] Visit Date: 01/25/2010 [facility] : 1945 Location: [facility] Race: White Document No: [id number] Gender: Male Primary Provider: Janeth Lux Other [...] REFERRING PHYSICIAN CC LIST: Ming Ponce MD [address] [place] [address] [address] [place] [address] DICTATED BY: JANETH LUX M.D. [id number] SIGNED BY: JANETH LUX DATE AND TIME SIGNED: 02/03/2010 12:13 AM Note: This note provides information pertaining only to a specific event. A more detailed medical history is available in the Medical Record. documented in this encounter Plan of Treatment Not on file documented as of this encounter Visit Diagnoses Not on filedocumented in this encounter Care Teams Rn Medication Relationship Specialty Start Date End Date Unknown, Provider PROVIDER UNKNOWN PCP - General 03/25/13 10/24/19 Unknown, Provider PROVIDER UNKNOWN PCP - General 10/25/19 12/23/19 Walt Cerda MD [address] [place] [address] [place] [address] PCP - General Family Medicine 12/24/19 12/24/19 Walt Cerda MD [address] [place] [address] [place] [address] PCP - General Family Medicine 03/23/20 11/01/24 Janet Singleton PA-C [address] [place] [address] [place] [address] PCP - General Commercial Credit Officer 11/02/24 Reagan [place] MD [address] [place] [address] PCP - Specialty Referring 1 Urology 11/17/24 Walt Cerda MD [address] [place] [address] [place] [address] Family Medicine 11/20/19 documented as of this encounter
--- OUTSIDE RECORDS SUMMARY | 2025-03-10 18:54 | XMS_ITS | Encounter Summary ---
Author Organization [facility] Address [address] [place] [address] Care Team Providers Care Business Development Officer Name Role Phone Unknown, Provider Primary Care Provider + [phone] Unknown, Provider Primary Care Provider + [phone] Walt Cerda MD Unavailable + [phone] Walt Cerda MD Primary Care Provider [phone] Walt Cerda MD Primary Care Provider [phone] Janet Singleton PA-C Primary Care Provider + [phone] Reagan Stockton MD Unavailable Encounter Details Date Type Department Care Team (Late st Contact Info) Description 05/19/2009 Historical Encounter [facility] HISTORIC Anabel Lee MD Social History [...] Lee - 05/22/2009 12:08 AM EDT [facility] History #: [id number] Patient Name: KRISTYN GONSALES Tape #: [id number] Attending Note PALLAVIFIORNEVAEHLeola Garcia May 19, 2009 [...] patient was found to have evidence of 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 The slides have been reviewed here at [facility]. There is 40%-50% involvement of most of the cores. There were few cores with Wallingford 3 3=6 disease. 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 NARRATIVE AND FINDINGS: [...] with a relatively high-volume intermediate-risk, PSA 6.4, Wallingford 3 4=7 T1c adenocarcinoma of the prostate. [...] is available in the Medical Record. * Antoinno Salazar MD PhD - 05/20/2009 12:08 AM EDT Name: Kristyn Gonsales History: [id number] Address: [address] [place] [address] Visit Date: 05/19/2009 [facility] Location: [facility] : 1945 Race: White Gender: Male Primary Provider: Antonino Salazar Other Provider: Document No: [id number] REASON FOR VISIT: New diagnosis of prostate cancer, second opinion. 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 His PSA in 09/29 was 8, six weeks later recheck was 5.6. In 11/28, his PSA was 4.7 and he had an abnormal rectal exam. In 03/30, he had a 12-core prostate biopsy, which demonstrated Wallingford 3+4=7 adenocarcinoma of the prostate in 9 of 12 cores including [place]ingford 3+3=5 in 50% and 50% of cores from the right mid and Karley 3+4=7 adenocarcinoma of the prostate in 60% of left mid, 35% of left apex and [place]ford 3+3=6 in 45% and 40% of left [...] of prostate cancer. 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 He has two children, one of them [...] patient over which 40 minutes were in [id number] consultation time. We discussed both surgical removal [...] via E-mail. DICTATED BY: ANTONINO SALAZAR M.D. [id number] SIGNED BY: ANTONINO SALAZAR THIS DOCUMENT HAS BEEN ELECTRONICALLY SIGNED. DATE SIGNED: 06/02/2009 Note: This clinic note provides information pertaining only to the patient's most recent visit. A more detailed medical history is available in the Medical Record. documented in this encounter Consult Notes * Anabel Lee - 05/23/2009 12:09 AM EDT [facility] History #: [id number] Patient Name: KRISTYN GONSALES Tape #: [id number] Consult ANABEL LEE A May 19, 2009 [...] HISTORY OF PRESENT ILLNESS: Referring Physician: Dr. Reagna [facility] [place]. In 09/29, Mr. Sy experienced an elevated [...] 9/12 cores showed adenocarcinoma with 5 showed Wallingford 3 4=7 with 4 cores showing Karley 3 3=6. The prostate was measured to be 34 grams by ultrasound. PSA repeated today at [facility] 05/19/09, was 6.4. 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 His job requires that he travel extensively with several flights a year to [place]. The patient has 2 children and is . He lives in [facility]. The patient denies having ever used [...] C. Right base, small focus of adenocarcinoma, Wallingford 3 3=6, separate high-grade prostatic intraepithelial neoplasia. D. Right lateral apex, benign prostatic tissue. E. Bilateral mid, adenocarcinoma of the prostate, Karley 3 4=7, 50%. F. Right lateral base, high-grade prostatic intraepithelial neoplasia. G. Left apex, small focus of adenocarcinoma, Wallingford 3 3=6. separate high-grade prostatic intraepithelial neoplasia. H. Left mid small focus of adenocarcinoma 3 3=6, adjacent high- grade prostatic intraepithelial neoplasia. 1. Left base, adenocarcinoma of the prostate, Wallingford 3 4=7, 50%. 2. Left lateral apex, adenocarcinoma of the prostate, Wallingford 3 3=6, 50%. 3. Left lateral mid, adenocarcinoma of the prostate, Karley 3 4=7, 60%. 4. Left lateral base, adenocarcinoma of the prostate, Wallingford 3 4=7, 40%. Imaging: None. LABORATORY DATA: [...] (05/08/2009 8:57 AM EDT) Surg Path Report [facility] Patient: KRISTYN GONSALES Path# [id number] [facility] MR # [id number] Accessioned 05/08/2009 Surgical Pathology Birthdate: 1945 (Age 63) Loc: OUTSIDE Consult Service [address] [place] [address] Gender: M Spec. Taken 04/18/2009 Md [place]. [id number] [facility] Physician: YURY HOGUE M.D. INTERPRETATION AND DIAGNOSIS: (pbi) 05/09/2009 @ 05:50 pm OUTSIDE SLIDES: PROSTATE (BX., [id number], 04/18/09): A. RIGHT APEX: BENIGN PROSTATIC TISSUE. 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 FOR PATIENTS: FREQUENTLY ASKED QUESTIONS (FAQS) ABOUT YOUR PATHOLOGY REPORT GO TO: [email or web address]. [facility] 1) MOVE YOUR CURSOR OVER THE TAB [...] ADAMS EUBANKS M.D. 05/08/2009 Received 12 slides [id number] ([id number]), [facility], [place], [place]. (End of Report) printed 09/29/2018 16:27 Reported by: [facility] Surgical [place]ology [place] [id number] Final Report Signed on 05/09/2009 at 05:50 pm PDS Other 05/08/2009 8:57 AM EDT 04/18/2009 12:00 AM EDT us Ruben Hogue MD PATHOLOGY ORDERABLES Edited Res ult - Final PDS documented in this encounter Visit Diagnoses Not on filedocumented in this encounter Care Teams Business Development Officer Relationship Specialty Start Date End Date Unknown, Provider PROVIDER UNKNOWN PCP - General 03/25/13 10/24/19 Unknown, Provider PROVIDER UNKNOWN PCP - General 10/25/19 12/23/19 Walt Cerda MD [address] [place] [address] [place] [address] PCP - General Family Medicine 12/24/19 12/24/19 Walt Cerda MD [address] [place] [address] [place] [address] PCP - General Family Medicine 03/23/20 11/01/24 Janet Singleton PA-C [address] [place] [address] [place] [address] PCP - General Mathematical Engineer 11/02/24 Reagan Stockton MD [address] [place] [address] [address] [place], [place] PCP - Specialty Referring 1 Urology 11/17/24 Walt Cerda MD [address] [address] [place] [address] Family Medicine 11/20/19 documented as of this encounter
--- OUTSIDE RECORDS SUMMARY | 2025-03-10 18:54 | XMS_ITS | Encounter Summary ---
Author Organization [facility] Address [address] [place] [address] Care Team Providers Care Subway Car Repairer Name Role Phone Unknown, Provider Primary Care Provider + [phone] Unknown, Provider Primary Care Provider + [phone] Walt Cerda MD Unavailable + [phone] Walt Cerda MD Primary Care Provider [phone] Walt Cerda MD Primary Care Provider [phone] Janet Singleton PA-C Primary Care Provider + [phone] Reagan Stockton MD Unavailable Encounter Details Date Type Department Care Team (Late st Contact Info) Description 10/19/2008 [facility] Provider, Historical Social History Tobacco Use [...] EST Name: Peter Gonsales History: [id number] Address: [address] [place] [address] Visit Date: 10/19/2008 [facility] : 1945 Location: 1003 Race: White Document No: [id number] Gender: Male Primary Provider: Janeth Lux Other Provider: Patient missed appointment with Dr. Lux on October 19, 2008. NS letter mailed on November 01, 2008[facility] SIGNED BY: JANETH LUX THIS DOCUMENT HAS BEEN ELECTRONICALLY SIGNED. DATE SIGNED: 11/16/2008 Note: This note provides information pertaining only to a specific event. A more detailed medical history is available in the Medical Record. documented in this encounter Plan of Treatment Not on file documented as of this encounter Visit Diagnoses Not on filedocumented in this encounter Care Teams Subway Car Repairer Relationship Specialty Start Date End Date Unknown, Provider PROVIDER UNKNOWN PCP - General 03/25/13 10/24/19 Unknown, Provider PROVIDER UNKNOWN PCP - General 10/25/19 12/23/19 Walt Cerda MD [address] [place] [address] [place] [address] PCP - General Family Medicine 12/24/19 12/24/19 Walt Cerda MD [address] [place] [address] [place] [address] PCP - General Family Medicine 03/23/20 11/01/24 Janet Singleton PA-C [address] [place] [address] [place] [address] PCP - General Traffic Engineer 11/02/24 Reagan Stockton MD [address] [place] [address] PCP - Specialty Referring 1 Urology 11/17/24 Walt Cerda MD [address] [place] [address] [place] [address] Family Medicine 11/20/19 documented as of this encounter
--- OUTSIDE RECORDS SUMMARY | 2025-03-10 18:54 | XMS_ITS | Encounter Summary ---
Author Organization [facility] Address [address] [place] [address] Care Team Providers Care Global Mobility Specialist Name Role Phone Unknown, Provider Primary Care Provider + [phone] Unknown, Provider Primary Care Provider + [phone] Walt Cerda MD Unavailable + [phone] Walt Cerda MD Primary Care Provider [phone] Walt Cerda MD Primary Care Provider [phone] Janet Singleton PA-C Primary Care Provider + [phone] Reagan Stockton MD Unavailable Encounter Details Date Type Department Care Team (Late st Contact Info) Description 12/21/2009 Historical Encounter [facility] HISTORIC Provider, Historical Social History Tobacco [...] Name: Peter Gonsales History: [id number] Address: [address] [place] [address] Visit Date: 12/28/2009 [facility] : 1945 Location: [place] Race: White Document No: [id number] Gender: Male Primary Provider: Janeth Lux Other [...] REFERRING PHYSICIAN CC LIST: Ming Ponce MD [address] [place] [address], [address] [place] [address] DICTATED BY: JANETH LUX M.D. [id number] SIGNED BY: JANETH LUX DATE AND TIME SIGNED: 01/05/2010 11:24 AM Note: This note provides information pertaining only to a specific event. A more detailed medical history is available in the Medical Record. * Provider, Historical - 12/22/2009 12:04 AM EDT Name: Peter Gonsales History: [id number] Address: [address] [place] [address] Visit Date: 12/21/2009 [facility] : 1945 Location: [place] Race: White Document No: [id number] Gender: Male Primary Provider: Janeth Lux Other [...] REFERRING PHYSICIAN CC LIST: Ming Ponce MD [address] [facility] [address] [place] [id number] DICTATED BY: JANETH LUX M.D. [id number] SIGNED BY: JANETH LUX DATE AND TIME SIGNED: 01/05/2010 12:34 PM Note: This note provides information pertaining only to a specific event. A more detailed medical history is available in the Medical Record. documented in this encounter Plan of Treatment Not on file documented as of this encounter Visit Diagnoses Not on filedocumented in this encounter Care Teams Global Mobility Specialist Relationship Specialty Start Date End Date Unknown, Provider PROVIDER UNKNOWN PCP - General 03/25/13 10/24/19 Unknown, Provider PROVIDER UNKNOWN PCP - General 10/25/19 12/23/19 Walt Cerda MD [address] [place] [address] [place] [address] PCP - General Family Medicine 12/24/19 12/24/19 Walt Cerda MD [address] [facility] [address] [place] [address] PCP - General Family Medicine 03/23/20 11/01/24 Janet Singleton PA-C [address] [address] [place] [address] PCP - General Functional Consultant 11/02/24 Reagan Stockton MD [address] [place] [address] PCP - Specialty Referring 1 Urology 11/17/24 Walt Cerda MD [address] [id number] [place] [address] Family Medicine 11/20/19 documented as of this encounter
--- NOTE | 2025-03-10 20:05 | ECG_ITS ---
Test Date: 2025-03-10 20:08:32 Measurements Intervals [place] Rate: 50 P: 69 NE: 214 QRS: -26 QRSD: 82 T: 50 QT: 407 QTc: 374 Interpretive Statements SINUS BRADYCARDIA WITH MARKED SINUS ARRHYTHMIA WITH FIRST DEGREE AV BLOCK BORDERLINE ST-T WAVE ABNORMALITY- ANTEROLATERAL LEADS BASELINE ARTIFACT- I, II, III, AVR, AVL, AVF, V5 BORDERLINE ECG Compared to ECG 03/10/2025 16:16:43 HEART RATE HAS DECREASED Electronically Signed On 03-10-2025 20:20:50 CDT by Atif Christensen D.O.
[2025-03-10 20:08] LABS: Troponin I < 0.012 ng/mL (0.000-0.034)
== END 2025-03-10 21:00 | disposition home or self-care (01) ==
PROVIDERS: Emergency Medicine; Emergency Provider Physician Assistant
DX: R07.89 Other chest pain (principal); R00.1 Bradycardia, unspecified; E78.5 Hyperlipidemia, unspecified; R60.0 Localized edema; R94.31 Abnormal electrocardiogram [ECG] [EKG]
CPT/HCPCS: 36415; 71046; 80053; 83690; 83880; 84484; 85025; 85380; 85610; 85730; 93005; 99284; A9270